=== PATIENT | male | born 1950 | race Caucasian/White ===

== ENCOUNTER 2019-05-11 12:45 | Inpatient (IN) ==
[2019-05-11] MEDS ORDERED: ACETAMINOPHEN 325 MG TAB PO PRN (13:33)
[2019-05-11] MEDS ORDERED: ONDANSETRON INJ 2 MG/ML 2 ML VIAL IV PRN (13:33)
[2019-05-11] MEDS ORDERED: DOCUSATE SODIUM 100 MG CAP PO PRN (13:38)
[2019-05-11] MEDS ORDERED: MoRPHine SULFATE 2 MG/ML CARP IV PRN (13:38)
[2019-05-11] MEDS ORDERED: POLYETHYLENE (MIRALAX) 17 GM PACK PO PRN (13:38)
[2019-05-11] MEDS ORDERED: CARBOHYDRATES FOR HYPOGLYCEMIA PO PRN (13:43)
[2019-05-11] MEDS ORDERED: GLUCOSE 10 TABS/TUBE PO PRN (13:43)
[2019-05-11] MEDS ORDERED: DEXTROSE 50% 50 ML SYRINGE IV PRN (13:43)
[2019-05-11] MEDS ORDERED: GLUCOSE 40% GEL 15 GM TUBE PO PRN (13:43)
[2019-05-11] MEDS ORDERED: GLUCAGON FOR INJ 1 MG VIAL SQ PRN (13:43)
--- NOTE | 2019-05-11 13:48 | History & Physical Report ---
Date of Service May 11, 2019 Assessment & Plan (1) Abdominal malignancy: Patient with recently identified abdominal mass highly suspicious for malignancy. -Admit to medical floor -NSS at 125mL/hr x 2 liters -Obtain MRI imaging from outside facility. -Check BMP, Mg, PO4, CBC, LFTs and INR -Check CA 19-9 -Pain control with OxyIR 5mg po q 4 hours as needed -Pain control with Morphine 2mg IV q 4 hours as needed -Colace and Miralax PRN -Hematology/Oncology consultation appreciated -Will consult GI vs General Surgery for possible biopsy pending imaging findings. Uncertain at this time exact location of mass -Palliative Care consultation after diagnosis Present on Admission?: Yes (2) Diabetes: Patient reports adequate control with home medications, Metformin, Jardiance and Tradjenta. -Hold oral agents while inpatient -ISS, target blood sugar 100 - 140 -Check HgbAIC Present on Admission?: Yes (3) CAD (coronary artery disease): Patient reports history of CAD s/p stent placement x 2 in [facility] in May or June of 2018. He is presently taking Brillinta. Denies CP/Palpitaitons/Orthopnea/SOB/Dizziness. -Check EKG -Continue Brillinta 90mg po BID -Continue Atorvastatin 80mg po daily -Continue Toprol 12.5mg po daily -Continue Losartan 50mg po daily Present on Admission?: Yes (4) BPH (benign prostatic hyperplasia): Patient reports weak urinary stream. -Bladder scan as needed -Continue Flomax 0.4mg po daily F/E/N- NSS at 125mL/hr x 2 liters, checking labs/electrolytes, AHA/CC diet as tolerated Ppx - Lovenox Code - Full Dispo - Admit to medical floor Present on Admission?: Yes History of Present Illness Chief Complaint: Abdominal pain Primary Care Provider: Wilmer Aguilera DO Chele Cai is an unfortunate 68-year-old male presenting with suspected metastatic malignancy, unknown primary at this time. Patient reports severe right-sided flank pain over the last few weeks. He saw his PCP with this complaint approximately 2 weeks ago. An MRI was obtained which reportedly showed diffuse lesions in the liver, spleen and abdomen suspicious for metastatic disease. He was seen last weekend at an outside emergency room and was administered IV fluids and pain medications and subsequently discharged home. She reports weight loss of approximately 40 pounds over the last 1 to 2 months. Reports decreased appetite, poor p.o. intake and hot flashes. Also with constipation. Otherwise denies fever/chills/chest pain/palpitations/cough/shortness of breath/headache/seizure/numbness/weakness/tingling. Denies nausea/vomiting/diarrhea. Allergies Allergy/AdvReac Type Severity Reaction Status Date / Time No Known Allergies Allergy Unverified 05/11/19 14:13 Home Medications Home Medications Medication Instructions Recorded Confirmed Type atorvastatin 80 mg PO DAILY 05/11/19 05/11/19 History empagliflozin [Jardiance] 25 mg PO DAILY 05/11/19 05/11/19 History linagliptin [Tradjenta] 5 mg PO DAILY 05/11/19 05/11/19 History losartan 50 mg PO DAILY 05/11/19 05/11/19 History metformin 1,000 mg PO BID 05/11/19 05/11/19 History metoprolol succinate 12.5 mg PO DAILY 05/11/19 05/11/19 History omeprazole 20 mg PO DAILY 05/11/19 05/11/19 History tamsulosin 0.4 mg PO DAILY 05/11/19 05/11/19 History ticagrelor [Brilinta] 90 mg PO BID 05/11/19 05/11/19 History Past Med/Surg History Medical History (Updated 05/11/19 @ 14:02 by Maribel Morales DO) Abdominal malignancy BPH (benign prostatic hyperplasia) CAD (coronary artery disease) Diabetes Surgical History (Updated 05/11/19 @ 22:54 by Maribel Morales DO) History of heart artery stent May 2018 at [facility] Family History (Updated 05/11/19 @ 22:55 by Maribel Morales DO) Brother Cancer Sister Cancer Social History (System 05/01/19 @ 11:54 by Gela Tyson) Preferred Language: [place] Citizen [employer] Operator Required: No Beliefs That Will Affect Care: None Current Living Situation: Spouse Feels Safe at Home: Yes Safety Concerns: Feels Safe At This Time Smoking Status: Former smoker Tobacco Type: cigarettes ; Smoking End Date: 05/11/19 ; Hx Alcohol Use: No Hx Substance Use: No Review of Systems Review of Systems: All systems reviewed & are unremarkable except as noted in HPI & below Physical Exam Physical Exam: General: patient resting comfortably, NAD, ill in appearance, AA&O x 4 Skin: warm, dry, intact, no rashes or lesions, jaundice HEENT: NC/AT, PERRL, EOMI, anicteric sclera, conjunctiva without injection, external ear normal to inspection and nontender, nares patent, dry mucus membranes, dentition intact, no oropharyngeal lesions, neck supple, trachea midline, no LAD, no thyromegaly, no JVD Heart: +S1/S2, regular, no m/r/g Lungs: equal air entry bilaterally, no rales/rhonchi/wheezes Abd: +BS, soft, tenderness in the right upper quadrant, palpable liver edge, tender Ext: warm, 2+ pulses in UE/LE bilaterally, no clubbing/cyanosis or edema Neuro: nonfocal, patient AA&O x 4, speech intact, no facial droop, moving all extremities on command with equal strength 5/5 Results & Data Vital Signs (Past 12 Hours) Vital Signs Temp Pulse Resp BP Pulse Ox 05/11/19 13:16 36.7 C 99 H 20 103/64 95 Laboratory Results Lab Results 05/11/19 05/11/19 05/11/19 Range/Units 13:58 14:12 14:12 WBC 7.98 (4.8-10.8) K/uL RBC 4.62 L (4.7-6.1) M/uL Hgb 12.2 L (14.0-18.0) g/dL Hct 38.6 L (42-52) % MCV 83.5 (80-100) fL MCH 26.4 (25-34) pg MCHC 31.6 L (32-36) g/dL RDW Std Deviation 46.7 H (36.4-46.3) fL RDW Coeff of Lesley 15.3 H (11.5-14.5) % Plt Count 196 (130-400) K/uL MPV 10.7 H (7.4-10.4) fL Immature Gran % (Auto) 0.4 % Neut % (Auto) 86.7 % Lymph % (Auto) 5.0 % [place] % (Auto) 7.8 % Eos % (Auto) 0.1 % Baso % (Auto) 0.0 % Immature Gran # (Auto) 0.03 H (0.00-0.02) K/uL Neut # (Auto) 6.92 H (1.4-6.5) K/uL Lymph # (Auto) 0.40 L (1.2-3.4) K/uL [place] # (Auto) 0.62 H (0.11-0.59) K/uL Eos # (Auto) 0.01 (0-0.5) K/uL Baso # (Auto) 0.00 (0-0.2) K/uL PT (9.0-12.0) Seconds INR (0.9-1.1) Sodium 133 L (136-145) mmol/L Potassium 4.3 (3.5-5.1) mmol/L Chloride 101 (98-107) mmol/L Carbon Dioxide 25 (21-32) mmol/L Anion Gap 7.0 (3-11) BUN 30 H (7-18) mg/dl Creatinine 1.07 (0.6-1.4) mg/dl Est Cr Clr Drug Dosing 71.9 ml/min Est GFR ( Amer) 82.2 Est GFR (Non-Af Amer) 71.0 BUN/Creatinine Ratio 27.8 H (10-20) Glucose 130 H (70-99) mg/dl POC Glucose 173 H (70-99) Calcium 11.5 H (8.5-10.1) mg/dl Ionized Calcium (1.12-1.32) mmol/L Phosphorus 3.0 (2.5-4.9) mg/dl Magnesium 2.4 (1.8-2.4) mg/dl Total Bilirubin 2.0 H (0.2-1) mg/dl Direct Bilirubin 1.4 H (0-0.2) mg/dl AST 184 H (15-37) U/L ALT 55 (12-78) U/L Alkaline Phosphatase 372 H (45-117) U/L Total Protein 7.4 (6.4-8.2) gm/dl Albumin 2.5 L (3.4-5.0) gm/dl Lipase 81 (73-393) U/L Urine Color Urine Appearance (Clear) Urine pH (4.5-7.5) Ur Specific [place] (1.000-1.030) Urine Protein (Negative) Urine Glucose (UA) (Negative) Urine Ketones (Negative) Urine Blood (Negative) Urine Nitrite (Negative) Urine Bilirubin (Negative) Urine Urobilinogen (Negative) Ur Leukocyte Esterase (Negative) Hepatitis C Ab Screen (Neg) 05/11/19 05/11/19 05/11/19 Range/Units 14:12 14:14 15:42 WBC (4.8-10.8) K/uL RBC (4.7-6.1) M/uL Hgb (14.0-18.0) g/dL Hct (42-52) % MCV (80-100) fL MCH (25-34) pg MCHC (32-36) g/dL RDW Std Deviation (36.4-46.3) fL RDW Coeff of Lesley (11.5-14.5) % Plt Count (130-400) K/uL MPV (7.4-10.4) fL Immature Gran % (Auto) % Neut % (Auto) % Lymph % (Auto) % [place] % (Auto) % Eos % (Auto) % Baso % (Auto) % Immature Gran # (Auto) (0.00-0.02) K/uL Neut # (Auto) (1.4-6.5) K/uL Lymph # (Auto) (1.2-3.4) K/uL [place] # (Auto) (0.11-0.59) K/uL Eos # (Auto) (0-0.5) K/uL Baso # (Auto) (0-0.2) K/uL PT 12.2 H (9.0-12.0) Seconds INR 1.2 H (0.9-1.1) Sodium (136-145) mmol/L Potassium (3.5-5.1) mmol/L Chloride (98-107) mmol/L Carbon Dioxide (21-32) mmol/L Anion Gap (3-11) BUN (7-18) mg/dl Creatinine (0.6-1.4) mg/dl Est Cr Clr Drug Dosing ml/min Est GFR ( Amer) Est GFR (Non-Af Amer) BUN/Creatinine Ratio (10-20) Glucose (70-99) mg/dl POC Glucose (70-99) Calcium (8.5-10.1) mg/dl Ionized Calcium (1.12-1.32) mmol/L Phosphorus (2.5-4.9) mg/dl Magnesium (1.8-2.4) mg/dl Total Bilirubin (0.2-1) mg/dl Direct Bilirubin (0-0.2) mg/dl AST (15-37) U/L ALT (12-78) U/L Alkaline Phosphatase (45-117) U/L Total Protein (6.4-8.2) gm/dl Albumin (3.4-5.0) gm/dl Lipase (73-393) U/L Urine Color Dark Yellow Urine Appearance Clear (Clear) Urine pH 5.0 (4.5-7.5) Ur Specific [place] 1.037 H (1.000-1.030) Urine Protein Negative (Negative) Urine Glucose (UA) 3+ H (Negative) Urine Ketones Trace H (Negative) Urine Blood Negative (Negative) Urine Nitrite Negative (Negative) Urine Bilirubin Negative (Negative) Urine Urobilinogen Positive H (Negative) Ur Leukocyte Esterase Negative (Negative) Hepatitis C Ab Screen Neg (Neg) 05/11/19 05/11/19 05/11/19 Range/Units 16:38 19:58 20:14 WBC (4.8-10.8) K/uL RBC (4.7-6.1) M/uL Hgb (14.0-18.0) g/dL Hct (42-52) % MCV (80-100) fL MCH (25-34) pg MCHC (32-36) g/dL RDW Std Deviation (36.4-46.3) fL RDW Coeff of Lesley (11.5-14.5) % Plt Count (130-400) K/uL MPV (7.4-10.4) fL Immature Gran % (Auto) % Neut % (Auto) % Lymph % (Auto) % [place] % (Auto) % Eos % (Auto) % Baso % (Auto) % Immature Gran # (Auto) (0.00-0.02) K/uL Neut # (Auto) (1.4-6.5) K/uL Lymph # (Auto) (1.2-3.4) K/uL [place] # (Auto) (0.11-0.59) K/uL Eos # (Auto) (0-0.5) K/uL Baso # (Auto) (0-0.2) K/uL PT (9.0-12.0) Seconds INR (0.9-1.1) Sodium 135 L (136-145) mmol/L Potassium 4.3 (3.5-5.1) mmol/L Chloride 100 (98-107) mmol/L Carbon Dioxide 26 (21-32) mmol/L Anion Gap 9.0 (3-11) BUN 28 H (7-18) mg/dl Creatinine 1.29 (0.6-1.4) mg/dl Est Cr Clr Drug Dosing 59.7 ml/min Est GFR ( Amer) 65.6 Est GFR (Non-Af Amer) 56.6 BUN/Creatinine Ratio 21.8 H (10-20) Glucose 120 H (70-99) mg/dl POC Glucose 136 H 202 H (70-99) Calcium 11.5 H (8.5-10.1) mg/dl Ionized Calcium (1.12-1.32) mmol/L Phosphorus (2.5-4.9) mg/dl Magnesium (1.8-2.4) mg/dl Total Bilirubin (0.2-1) mg/dl Direct Bilirubin (0-0.2) mg/dl AST (15-37) U/L ALT (12-78) U/L Alkaline Phosphatase (45-117) U/L Total Protein (6.4-8.2) gm/dl Albumin (3.4-5.0) gm/dl Lipase (73-393) U/L Urine Color Urine Appearance (Clear) Urine pH (4.5-7.5) Ur Specific [place] (1.000-1.030) Urine Protein (Negative) Urine Glucose (UA) (Negative) Urine Ketones (Negative) Urine Blood (Negative) Urine Nitrite (Negative) Urine Bilirubin (Negative) Urine Urobilinogen (Negative) Ur Leukocyte Esterase (Negative) Hepatitis C Ab Screen (Neg) 05/11/19 Range/Units 20:14 WBC (4.8-10.8) K/uL RBC (4.7-6.1) M/uL Hgb (14.0-18.0) g/dL Hct (42-52) % MCV (80-100) fL MCH (25-34) pg MCHC (32-36) g/dL RDW Std Deviation (36.4-46.3) fL RDW Coeff of Lesley (11.5-14.5) % Plt Count (130-400) K/uL MPV (7.4-10.4) fL Immature Gran % (Auto) % Neut % (Auto) % Lymph % (Auto) % [place] % (Auto) % Eos % (Auto) % Baso % (Auto) % Immature Gran # (Auto) (0.00-0.02) K/uL Neut # (Auto) (1.4-6.5) K/uL Lymph # (Auto) (1.2-3.4) K/uL [place] # (Auto) (0.11-0.59) K/uL Eos # (Auto) (0-0.5) K/uL Baso # (Auto) (0-0.2) K/uL PT (9.0-12.0) Seconds INR (0.9-1.1) Sodium (136-145) mmol/L Potassium (3.5-5.1) mmol/L Chloride (98-107) mmol/L Carbon Dioxide (21-32) mmol/L Anion Gap (3-11) BUN (7-18) mg/dl Creatinine (0.6-1.4) mg/dl Est Cr Clr Drug Dosing ml/min Est GFR ( Amer) Est GFR (Non-Af Amer) BUN/Creatinine Ratio (10-20) Glucose (70-99) mg/dl POC Glucose (70-99) Calcium (8.5-10.1) mg/dl Ionized Calcium 1.38 H (1.12-1.32) mmol/L Phosphorus (2.5-4.9) mg/dl Magnesium (1.8-2.4) mg/dl Total Bilirubin (0.2-1) mg/dl Direct Bilirubin (0-0.2) mg/dl AST (15-37) U/L ALT (12-78) U/L Alkaline Phosphatase (45-117) U/L Total Protein (6.4-8.2) gm/dl Albumin (3.4-5.0) gm/dl Lipase (73-393) U/L Urine Color Urine Appearance (Clear) Urine pH (4.5-7.5) Ur Specific [place] (1.000-1.030) Urine Protein (Negative) Urine Glucose (UA) (Negative) Urine Ketones (Negative) Urine Blood (Negative) Urine Nitrite (Negative) Urine Bilirubin (Negative) Urine Urobilinogen (Negative) Ur Leukocyte Esterase (Negative) Hepatitis C Ab Screen (Neg) Diagnostic Findings XR chest 1V portable HISTORY: 68 years-old Male admission acute atypical chest pain COMPARISON: None available TECHNIQUE: Portable AP view the chest FINDINGS: Cardiac mediastinal and hilar silhouettes are within normal limits. Mild to moderate right hemidiaphragmatic elevation. No pneumothorax, pleural effusion, focal airspace consolidation or overt pulmonary edema. Mild right basilar atelectasis. Degenerative changes of the shoulders and spine. Mild convex right curvature of the midthoracic spine. IMPRESSION: 1. No acute process. 2. Right hemidiaphragm elevation with mild right basilar atelectasis. ACT 112: Negative or not required by law. The above report was generated using voice recognition software. It may contain grammatical, syntax or spelling errors. Electronically signed by: Paul Garzon M.D. 05/11/2019 2:02 PM Dictated: 05/11/19 1401 Transcribed: 05/11/19 1401 ECG Additional Comments: Study shows normal sinus rhythm at 89 bpm, left axis dev iation, MD = 142, QRS = 102, QTC = 440, nonspecific ST/T abnormalities, no STEMI Code Status & VTE Plan Code Status Full code VTE Prophylaxis Plan VTE Prophylaxis will be ordered: Yes PG Care Time/CCT Total # of Minutes Spent Total Time Spent with Patient: Total time spent is greater than 50% in coordination of care (as documented) at patient's floor/unit and/or counseling patient: (1) BPH (benign prostatic hyperplasia) Lower urinary tract symptom detail: weak urinary stream Lower urinary tract symptom presence: symptoms present Qualified Code(s): N40.1 - Benign prostatic hyperplasia with lower urinary tract symptoms; R39.12 - Poor urinary stream (2) Diabetes Diabetes mellitus complication status: without complication Diabetes mellitus intermediate insulin use: without intermediate designer use Diabetes mellitus type: type 2 Qualified Code(s): E11.9 - Type 2 diabetes mellitus without complications (3) CAD (coronary artery disease) Associated angina: without angina Coronary Disease-Associated Artery/Lesion type: [place] artery [place] vs. transplanted heart: kake heart Qualified Code(s): I25.10 - Atherosclerotic heart disease of kake coronary artery without angina pectoris
--- NOTE | 2019-05-11 14:03 | XRay Report ---
XR chest 1V portable HISTORY: 68 years-old Male admission acute atypical chest pain COMPARISON: None available TECHNIQUE: Portable AP view the chest FINDINGS: Cardiac mediastinal and hilar silhouettes are within normal limits. Mild to moderate right hemidiaphr agmatic elevation. No pneumothorax, pleural effusion, focal airspace consolidation or overt pulmonary edema. Mild right basilar atelectasis. Degenerative changes of the shoulders and spine. Mild convex right curvature of the midthoracic spine. IMPRESSION: 1. No acute process. 2. Right hemidiaphragm elevation with mild right basilar atelectasis. ACT 112: Negative or not required by law. The above report was generated using voice recognition software. It may contain grammatical, syntax o r spelling errors. Electronically signed by: Paul Garzon M.D. 05/11/2019 2:02 PM
[2019-05-11 14:24] LABS: Eosinophils # (auto) 0.01 K/uL (0-0.5); Eosinophils % (auto) 0.1 %; Hematocrit (blood only) 38.6 % (42-52); Hemoglobin 12.2 g/dL (14.0-18.0); Immature Granulocytes # (auto) 0.03 K/uL (0.00-0.02); Immature Granulocytes % (auto) 0.4 %; Mean Corpuscular Hemoglobin 26.4 pg (25-34); Mean Corpuscular Hgb Conc 31.6 g/dL (32-36); Mean Corpuscular Volume 83.5 fL (80-100); Mean Platelet Volume 10.7 fL (7.4-10.4); Monocytes # (auto) 0.62 K/uL (0.11-0.59); Monocytes % (auto) 7.8 %; Neutrophils # (auto) 6.92 K/uL (1.4-6.5); Neutrophils % (auto) 86.7 %; Platelet Count 196 K/uL (130-400); RDW Coefficient of Variation 15.3 % (11.5-14.5); RDW Standard Deviation 46.7 fL (36.4-46.3); Red Blood Count 4.62 M/uL (4.7-6.1); White Blood Count 7.98 K/uL (4.8-10.8)
[2019-05-11] MEDS ORDERED: PATIENT'S ALLERGY INFO NEEDS ENTERED SCH (14:30)
[2019-05-11] MEDS: OXYCODONE HCL IR 5 MG TAB (IMMEDIATE RELEASE) PO PRN ×2 (14:37→21:29)
[2019-05-11] MEDS: SODIUM CHLORIDE 0.9% 1000ML 1,000 ML IV SCH (14:37)
[2019-05-11] MEDS: METOPROLOL SUCC 25MG EXT REL TAB PO SCH (14:38)
[2019-05-11] MEDS: INSULIN ASPART 100 UNITS/ML 3 ML PEN SC SCH ×3 (14:45→20:38)
[2019-05-11 14:50] LABS: Albumin Level 2.5 gm/dl (3.4-5.0); BUN Creatinine Ratio 27.8 (10-20); Bilirubin Direct 1.4 mg/dl (0-0.2); Calcium 11.5 mg/dl (8.5-10.1); Creatinine Clr Calc Pharmacy 71.9 ml/min; Est GFR (African American) 82.2; Magnesium 2.4 mg/dl (1.8-2.4); Potassium 4.3 mmol/L (3.5-5.1)
[2019-05-11 14:55] LABS: Total Protein 7.4 gm/dl (6.4-8.2)
[2019-05-11 15:02] LABS: INR 1.2 (0.9-1.1); Prothrombin Time 12.2 Seconds (9.0-12.0)
[2019-05-11 15:50] LABS: Appearance Urine Clear (Clear); Blood Urine Negative (Negative); Color Urine Dark Yellow; Glucose Urine UA 3+ (Negative); Ketones Urine Trace (Negative); Leukocyte Esterase Urine Negative (Negative); Nitrite Urine Negative (Negative); Protein Urine Negative (Negative); Specific Gravity Urine 1.037 (1.000-1.030); Urobilinogen Urine Positive (Negative)
[2019-05-11 16:11] LABS: Bilirubin Urine Negative (Negative); Ictotest Urine Negative (Negative)
--- NOTE | 2019-05-11 16:47 | Consultation Report ---
DATE OF CONSULTATION: 05/11/2019 MEDICAL ONCOLOGY CONSULTATION REASON FOR CONSULTATION: Hepatic metastatic disease, origin unclear. HISTORY OF PRESENT ILLNESS: The patient is a very pleasant, but unfortunate, ill-appearing 68-year-old white gentleman who was admitted to [facility] on my insistence after he presented to medical oncology clinic with an undiagnosed abdominal malignancy. This gentleman has been feeling poorly over the past couple of months. Over the past couple of weeks, he has developed increasing right-sided flank pain that has worsened to the point where he was brought to the Emergency Room on 2 different occasions, both approximating the and holidays, respectively. Both times, the ER physicians did not opt to admit him. He was placed on opioids, particularly morphine and OxyIR. The patient relates a loss of at least 30-40 pounds over the past couple of months. His appetite is negligible at this point. CT scanning that was done at [facility] revealed multiple hepatic lesions; however, no formal biopsy was ever arranged for. Because of his nutritional status and poorly controlled pain, I thought it was reasonable to go put him in hospital under the hospitalist service for further workup. PAST MEDICAL HISTORY: Significant for diabetes mellitus, hyperlipidemia and gastroesophageal reflux disease. He also suffers from BPH. MEDICATIONS: Include atorvastatin 80 mg p.o. daily, Jardiance 25 mg p.o. daily, Tradjenta 5 mg p.o. daily, losartan 50 mg p.o. daily, metformin 1000 mg p.o. b.i.d., metoprolol 12.5 mg p.o. daily, omeprazole 20 mg p.o. daily, tamsulosin 0.4 mg p.o. daily, Brilinta 90 mg p.o. b.i.d. ALLERGIES: No known drug allergies. SOCIAL HISTORY: The patient is retired. He does have a remote smoking history. Negative for alcohol. FAMILY HISTORY: Noncontributory. REVIEW OF SYSTEMS: CONSTITUTIONAL: As per HPI, most notably for general clinical decline, which includes weakness, right-sided abdominal flank pain, loss of weight and appetite. SKIN: No rashes or lesions. No history of dermatoses. HEENT: Negative for headaches, lightheadedness or dizziness. He has no acute visual or hearing deficits. No sinus symptoms, sore throat or dysphagia. LYMPHATICS: No history of lymphoproliferative disease. CARDIAC: No history of coronary artery disease. No current angina or palpitations. PULMONARY: He is a reformed smoker. Negative for COPD, shortness of breath or dyspnea on exertion at present. GASTROINTESTINAL: Positive for abdominal pain. He denies diarrhea or constipation. Negative for nausea and vomiting at present. GENITOURINARY: He suffers from BPH. No current hematuria, dysuria, or urinary incontinence. PSYCHIATRIC: Negative for anxiety, depression or psychoses. ENDOCRINE: Positive for diabetes mellitus. MUSCULOSKELETAL: Negative for arthralgias or myalgias. No focal muscle weakness. NEUROLOGIC: Negative for seizure, stroke, or migraine headache. HEMATOLOGIC: Negative for anemia, thrombophilia or bleeding diathesis. PHYSICAL EXAMINATION: GENERAL: Pleasant, but ill-appearing 68-year-old gentleman, in no acute distress. VITAL SIGNS: Temperature 36.7, pulse 99, respiratory rate 20, blood pressure 103/64. SKIN: Warm, dry, noncyanotic without petechia, rash or ecchymosis. HEENT: Head is atraumatic, normocephalic. Eyes: PERRLA, EOMI. Sclerae are nonicteric. No conjunctival injection. Nares are patent without rhinorrhea or discharge. Throat is clear. Tongue is midline. Mucous membranes are moist. NECK: Supple without JVD or thyromegaly. LYMPHATICS: No cervical, supraclavicular, axillary or inguinal palpable nodes. HEART: Regular rate and rhythm. No clicks, rubs, murmurs or gallops. . ABDOMEN: Point tenderness on the right side of his abdomen. Palpable splenomegaly on exam. No rigidity or guarding. Bowel sounds are hypoactive. EXTREMITIES: No clubbing, cyanosis or edema. MUSCULOSKELETAL: Strength and pulses are equal in all 4 quadrants. NEUROLOGICAL: He is awake, alert and oriented x3. Cranial nerves are grossly intact. LABORATORY DATA: WBC count 7980, hemoglobin 12.2, platelet count 196,000. PT 12.2 seconds, INR 1.2. Sodium 133, potassium 4.3, chloride 101, carbon dioxide 25, creatinine 1.07, BUN 30, calcium 11.5, albumin 2.5, AST 184, alkaline phosphatase 372. IMPRESSION: 1. Metastatic carcinoma, primary unknown (hepatic metastatic disease). 2. General clinical decline. 3. Anorexia/weight loss. 4. Intractable abdominal pain. 5. Hypercalcemia, attributable to malignancy. 6. Hypoalbuminemia. PLAN: Mr. Cai was seen this morning in the medical oncology clinic. He is obviously quite ill and need to expedite a diagnosis. In addition his pain is poorly controlled and nutrition should be addressed as well. I have asked the hospitalist service to admit Mr. Cai for formal diagnosis. I would anticipate the need for MediPort, so recommend a surgical consultation for such as well. He clearly has an elevated calcium level attributable to his ongoing malignancy. Would provide pamidronate dosing at 60-90 mg over 2 hours with IV saline and low-dose loop diuretic. We will ask the [employer] to provide recommendations, start an appetite stimulant, perhaps daily prednisone versus Megace. Once diagnosis is established, either Dr. Eagle or myself will reengage and make formal recommendations regarding salvage therapy moving forward. Appreciate you assisting us in the care of this very pleasant but unfortunate gentleman. Again, we will periodically follow during his stay. DEQUAN
[2019-05-11] MEDS ORDERED: SODIUM CHLORIDE 0.9% 1000ML 500 ML IV ONE (17:24)
[2019-05-11] MEDS: HYDROmorphone INJ 1 MG/ML SYRINGE IV PRN (17:47)
[2019-05-11] MEDS ORDERED: PAMIDRONATE DISODIUM 60 MG in SODIUM CHLORIDE 0.9% 1000ML 1,000 ML IV SCH (18:00)
[2019-05-11] MEDS ORDERED: FUROSEMIDE 10 MG in SYRINGE 0 ML IV ONE (18:00)
[2019-05-11] MEDS: TICAGRELOR 90 MG TAB PO SCH (20:38)
[2019-05-11] MEDS: ENOXAPARIN INJ 40 MG/0.4 ML SYR SQ SCH (20:38)
[2019-05-11 20:42] LABS: BUN Creatinine Ratio 21.8 (10-20); Calcium 11.5 mg/dl (8.5-10.1); Creatinine Clr Calc Pharmacy 59.7 ml/min; Est GFR (African American) 65.6; Est GFR (Non-African American) 56.6; Potassium 4.3 mmol/L (3.5-5.1)
[2019-05-12] MEDS: HYDROmorphone INJ 1 MG/ML SYRINGE IV PRN ×4 (00:12→19:39)
[2019-05-12] MEDS: SODIUM CHLORIDE 0.9% 1000ML 1,000 ML IV SCH ×3 (03:27→18:05)
[2019-05-12 05:43] LABS: Eosinophils # (auto) 0.01 K/uL (0-0.5); Eosinophils % (auto) 0.1 %; Hematocrit (blood only) 36.5 % (42-52); Hemoglobin 11.5 g/dL (14.0-18.0); Immature Granulocytes # (auto) 0.03 K/uL (0.00-0.02); Immature Granulocytes % (auto) 0.4 %; Lymphocytes # (auto) 0.63 K/uL (1.2-3.4); Lymphocytes % (auto) 8.2 %; Mean Corpuscular Hemoglobin 26.3 pg (25-34); Mean Corpuscular Hgb Conc 31.5 g/dL (32-36); Mean Corpuscular Volume 83.3 fL (80-100); Monocytes # (auto) 0.73 K/uL (0.11-0.59); Monocytes % (auto) 9.5 %; Neutrophils % (auto) 81.8 %; Platelet Count 150 K/uL (130-400); RDW Coefficient of Variation 15.4 % (11.5-14.5); RDW Standard Deviation 46.9 fL (36.4-46.3); Red Blood Count 4.38 M/uL (4.7-6.1)
[2019-05-12 06:10] LABS: BUN Creatinine Ratio 26.3 (10-20); Calcium 11.4 mg/dl (8.5-10.1); Est GFR (African American) 85.1; Est GFR (Non-African American) 73.4; Potassium 4.9 mmol/L (3.5-5.1)
--- NOTE | 2019-05-12 06:39 | Ultrasound Report ---
US liver CLINICAL HISTORY: ?biliary obstruction, hepatic mets COMPARISON STUDY: No previous studies for comparison. FINDINGS: Liver is markedly heterogeneous. Several hepatic lesions are noted including an apparent la rge right hepatic lobe mass that measures approximately 14.3 x 11.9 x 11.1 cm. A 1.6 cm left lobe cara er lesion is noted. The liver is enlarged. There is no biliary ductal dilatation. The common bile keyshawn t measures 2 mm in caliber. There is gallbladder wall thickening. There are stones. Positive sonograp hic Geiger sign was noted. A small amount of pericholecystic fluid is noted. Pancreas is unremarkable . There are apparent enlarged upper abdominal lymph nodes that measure up to 6.4 x 2.4 x 3.2 cm. Ther e is no right hydronephrosis. A 3.3 cm suspected right renal cyst is noted. IMPRESSION: 1. Heterogeneous liver parenchyma with numerous hepatic lesions including a suspected large right hep atic lobe lesion that measures approximately 14.3 x 11.9 x 11.1 cm. Findings are suspicious for hepat ic metastases. 2. Cholelithiasis, mild gallbladder wall thickening, trace pericholecystic fluid and positive sonogra phic Geiger sign. These findings are concerning for acute cholecystitis. 3. No biliary ductal dilatation. 4. Enlarged upper abdominal lymph nodes which are likely pathologic. ACT 112: Negative or not required by law. Electronically signed by: Dano Hartman M.D. 05/12/2019 6:38 AM
[2019-05-12 07:14] LABS: Estimated Average Glucose 163 mg/dl; Hemoglobin A1C 7.3 % (4.5-5.6)
[2019-05-12] MEDS: TICAGRELOR 90 MG TAB PO SCH (07:53)
[2019-05-12] MEDS: PANTOprazole 40 MG TAB PO SCH (07:54)
[2019-05-12] MEDS: METOPROLOL SUCC 25MG EXT REL TAB PO SCH (07:54)
[2019-05-12] MEDS: ATORVASTATIN 40 MG TAB PO SCH (07:55)
[2019-05-12] MEDS: TAMSULOSIN HCL 0.4 MG CAP PO SCH (07:55)
--- NOTE | 2019-05-12 08:16 | Electrocardiogram Report ---
Test Reason : Blood Pressure : / mmHG Vent. Rate : 089 BPM Atrial Rate : 089 BPM P-R Int : 142 ms QRS Dur : 102 ms QT Int : 362 ms P-R-T Axes : 048 -47 095 degrees QTc Int : 440 ms Normal sinus rhythm with sinus arrhythmia Left axis deviation Nonspecific ST and T wave abnormality Abnormal ECG No previous ECGs available Confirmed by Uvaldo Camilo ([id number]) on 05/11/2019 5:53:24 PM Referred By: Chauncey Jordan Confirmed By:Angel Camilo
[2019-05-12] MEDS ORDERED: LOSARTAN POTASSIUM 50 MG TAB PO SCH (09:00)
[2019-05-12] MEDS: INSULIN ASPART 100 UNITS/ML 3 ML PEN SC SCH ×4 (09:15→20:28)
[2019-05-12 09:33] LABS: INR 1.3 (0.9-1.1); Prothrombin Time 13.4 Seconds (9.0-12.0)
[2019-05-12 09:49] LABS: Albumin Level 2.1 gm/dl (3.4-5.0); Bilirubin Direct 1.3 mg/dl (0-0.2); Total Protein 6.2 gm/dl (6.4-8.2)
--- NOTE | 2019-05-12 10:30 | Surgery Consultation ---
Date of Consultation May 12, 2019 Assessment & Plan (1) Abdominal malignancy: 68 year-old male with recent diagnosis of abdominal malignancy/metastasis with unknown primary who was directly admitted for uncontrolled abdominal pain. Recent 40 pound weight loss in 1-2 months. Outside abdominal MRI not available for review. Plan: Our services consulted for possible port placement for salvage chemotherapy. Will need to discuss with hospitalist team and oncology team about goal of thera py. If wanting biopsy first to determine primary site vs port placement. He currently has diet ordered for today and had breakfast, so cannot place port today. If oncology wants port first can place port on Wednesday and hold Brilinta starting today. If biopsy is primary goal may need to consider transfer for IR biopsy if unable to be done at this facility. Continue current medical management (2) RUQ abdominal pain: Likely secondary to liver metastasis. Liver Ultrasound pending Would continue current pain management await US results (3) Metastasis of unknown primary: plan as above Dr. Streeter has seen patient, agrees with above. History of Present Illness Reason for Consultation: need for port placement Requesting Physician: Maribel Morales DO Attending Physician: Khai Ramirez History of Present Illness Don is an unfortunate 68-year-old male presenting with suspected metastatic malignancy, unknown primary at this time. Has had severe right-sided flank pain over the last few weeks. He saw his PCP with this complaint approximately 2 weeks ago. An MRI was obtained which reportedly showed diffuse lesions in the liver, spleen and abdomen suspicious for metastatic disease. He was seen last weekend at [place] emergency room and was administered IV fluids and pain me dications and subsequently discharged home. present in room and reports weight loss of approximately 40 pounds over the last 1 to 2 months. Reports decreased appetite, poor oral intake. Saw Dr. Hale in office yesterday and was admitted to hospital given severe uncontrolled abdominal pain. Our services consulted for possible port placement for salvage chemotherapy although unknown primary at this point as there has been no biopsy for diagnosis. He went for liver ultrasound this morning per . Still having moderate right sided abdominal pain. Ate breakfast this morning. On Brilinta for CAD and 2 stents placed in 2018. Allergies Allergy/AdvReac Type Severity Reaction Status Date / Time No Known Allergies Allergy Unverified 05/11/19 14:13 Home Medications Home Medications Medication Instructions Recorded Confirmed Type atorvastatin 80 mg PO DAILY 05/11/19 05/11/19 History empagliflozin [Jardiance] 25 mg PO DAILY 05/11/19 05/11/19 History linagliptin [Tradjenta] 5 mg PO DAILY 05/11/19 05/11/19 History losartan 50 mg PO DAILY 05/11/19 05/11/19 History metformin 1,000 mg PO BID 05/11/19 05/11/19 History metoprolol succinate 12.5 mg PO DAILY 05/11/19 05/11/19 History omeprazole 20 mg PO DAILY 05/11/19 05/11/19 History tamsulosin 0.4 mg PO DAILY 05/11/19 05/11/19 History ticagrelor [Brilinta] 90 mg PO BID 05/11/19 05/11/19 History Patient History Medical History (Updated 05/12/19 @ 10:58 by Alyssa Hernandez PA-C) Abdominal malignancy BPH (benign prostatic hyperplasia) CAD (coronary artery disease) Diabetes Surgical History (Updated 05/11/19 @ 22:54 by Maribel Morales DO) History of heart artery stent May 2018 at [facility] Family History (Updated 05/11/19 @ 22:55 by Maribel Morales DO) Brother Cancer Sister Cancer Social History (System 05/01/19 @ 11:54 by Gela Tyson) Preferred Language: 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: No Beliefs That Will Affect Care: None Current Living Situation: Spouse Feels Safe at Home: Yes Safety Concerns: Feels Safe At This Time Smoking Status: Former smoker Tobacco Type: cigarettes ; Smoking End Date: 05/11/19 ; Hx Alcohol Use: No Hx Substance Use: No Review of Systems Review of Systems: All systems reviewed & are unremarkable except as noted in HPI & below Physical Exam Constitutional: + ill appearing; no acute distress weak Respiratory: normal respiratory effort; no respiratory distress Skin: no rashes, warm and dry Psychiatric: Orientation: alert and oriented x 3 Results & Data Vital Signs (Past 12 Hours) Vital Signs Temp Pulse Resp BP Pulse Ox 05/12/19 07:00 36.4 C L 95 H 20 111/73 95 05/12/19 04:15 37.1 C 87 18 91/56 L 90 05/11/19 23:33 37.7 C H 90 18 95/62 L 91 Laboratory Results 05/12/19 05/12/19 05/12/19 Range/Units 09:02 09:02 07:45 WBC (4.8-10.8) K/uL RBC (4.7-6.1) M/uL Hgb (14.0-18.0) g/dL Hct (42-52) % MCV (80-100) fL MCH (25-34) pg MCHC (32-36) g/dL RDW Std Deviation (36.4-46.3) fL RDW Coeff of Lesley (11.5-14.5) % Plt Count (130-400) K/uL MPV (7.4-10.4) fL Immature Gran % (Auto) % Neut % (Auto) % Lymph % (Auto) % [place] % (Auto) % Eos % (Auto) % Baso % (Auto) % Immature Gran # (Auto) (0.00-0.02) K/uL Neut # (Auto) (1.4-6.5) K/uL Lymph # (Auto) (1.2-3.4) K/uL [place] # (Auto) (0.11-0.59) K/uL Eos # (Auto) (0-0.5) K/uL Baso # (Auto) (0-0.2) K/uL PT 13.4 H (9.0-12.0) Seconds INR 1.3 H (0.9-1.1) Sodium (136-145) mmol/L Potassium (3.5-5.1) mmol/L Chloride (98-107) mmol/L Carbon Dioxide (21-32) mmol/L Anion Gap (3-11) BUN (7-18) mg/dl Creatinine (0.6-1.4) mg/dl Est Cr Clr Drug Dosing ml/min Est GFR ( Amer) Est GFR (Non-Af Amer) BUN/Creatinine Ratio (10-20) Glucose (70-99) mg/dl POC Glucose 246 H (70-99) Estimat Average Glucose mg/dl Hemoglobin A1c (4.5-5.6) % Calcium (8.5-10.1) mg/dl Ionized Calcium (1.12-1.32) mmol/L Phosphorus (2.5-4.9) mg/dl Magnesium (1.8-2.4) mg/dl Total Bilirubin 2.0 H (0.2-1) mg/dl Direct Bilirubin 1.3 H (0-0.2) mg/dl AST 167 H (15-37) U/L ALT 46 (12-78) U/L Alkaline Phosphatase 310 H (45-117) U/L Total Protein 6.2 L (6.4-8.2) gm/dl Albumin 2.1 L (3.4-5.0) gm/dl Lipase (73-393) U/L CA 19-9 Antigen Urine Color Urine Appearance (Clear) Urine pH (4.5-7.5) Ur Specific [place] (1.000-1.030) Urine Protein (Negative) Urine Glucose (UA) (Negative) Urine Ketones (Negative) Urine Blood (Negative) Urine Nitrite (Negative) Urine Bilirubin (Negative) Urine Urobilinogen (Negative) Ur Leukocyte Esterase (Negative) Hepatitis C Ab Screen (Neg) 05/12/19 05/12/19 05/12/19 Range/Units 04:55 04:55 04:55 WBC 7.70 (4.8-10.8) K/uL RBC 4.38 L (4.7-6.1) M/uL Hgb 11.5 L (14.0-18.0) g/dL Hct 36.5 L (42-52) % MCV 83.3 (80-100) fL MCH 26.3 (25-34) pg MCHC 31.5 L (32-36) g/dL RDW Std Deviation 46.9 H (36.4-46.3) fL RDW Coeff of Lesley 15.4 H (11.5-14.5) % Plt Count 150 (130-400) K/uL MPV 11.0 H (7.4-10.4) fL Immature Gran % (Auto) 0.4 % Neut % (Auto) 81.8 % Lymph % (Auto) 8.2 % [place] % (Auto) 9.5 % Eos % (Auto) 0.1 % Baso % (Auto) 0.0 % Immature Gran # (Auto) 0.03 H (0.00-0.02) K/uL Neut # (Auto) 6.30 (1.4-6.5) K/uL Lymph # (Auto) 0.63 L (1.2-3.4) K/uL [place] # (Auto) 0.73 H (0.11-0.59) K/uL Eos # (Auto) 0.01 (0-0.5) K/uL Baso # (Auto) 0.00 (0-0.2) K/uL PT (9.0-12.0) Seconds INR (0.9-1.1) Sodium 138 (136-145) mmol/L Potassium 4.9 (3.5-5.1) mmol/L Chloride 105 (98-107) mmol/L Carbon Dioxide 27 (21-32) mmol/L Anion Gap 6.0 (3-11) BUN 27 H (7-18) mg/dl Creatinine 1.04 (0.6-1.4) mg/dl Est Cr Clr Drug Dosing 74.0 ml/min Est GFR ( Amer) 85.1 Est GFR (Non-Af Amer) 73.4 BUN/Creatinine Ratio 26.3 H (10-20) Glucose 101 H (70-99) mg/dl POC Glucose (70-99) Estimat Average Glucose 163 mg/dl Hemoglobin A1c 7.3 H (4.5-5.6) % Calcium 11.4 H (8.5-10.1) mg/dl Ionized Calcium (1.12-1.32) mmol/L Phosphorus (2.5-4.9) mg/dl Magnesium (1.8-2.4) mg/dl Total Bilirubin (0.2-1) mg/dl Direct Bilirubin (0-0.2) mg/dl AST (15-37) U/L ALT (12-78) U/L Alkaline Phosphatase (45-117) U/L Total Protein (6.4-8.2) gm/dl Albumin (3.4-5.0) gm/dl Lipase (73-393) U/L CA 19-9 Antigen Urine Color Urine Appearance (Clear) Urine pH (4.5-7.5) Ur Specific [place] (1.000-1.030) Urine Protein (Negative) Urine Glucose (UA) (Negative) Urine Ketones (Negative) Urine Blood (Negative) Urine Nitrite (Negative) Urine Bilirubin (Negative) Urine Urobilinogen (Negative) Ur Leukocyte Esterase (Negative) Hepatitis C Ab Screen (Neg) 05/11/19 05/11/19 05/11/19 Range/Units 20:14 20:14 19:58 WBC (4.8-10.8) K/uL RBC (4.7-6.1) M/uL Hgb (14.0-18.0) g/dL Hct (42-52) % MCV (80-100) fL MCH (25-34) pg MCHC (32-36) g/dL RDW Std Deviation (36.4-46.3) fL RDW Coeff of Lesley (11.5-14.5) % Plt Count (130-400) K/uL MPV (7.4-10.4) fL Immature Gran % (Auto) % Neut % (Auto) % Lymph % (Auto) % [place] % (Auto) % Eos % (Auto) % Baso % (Auto) % Immature Gran # (Auto) (0.00-0.02) K/uL Neut # (Auto) (1.4-6.5) K/uL Lymph # (Auto) (1.2-3.4) K/uL [place] # (Auto) (0.11-0.59) K/uL Eos # (Auto) (0-0.5) K/uL Baso # (Auto) (0-0.2) K/uL PT (9.0-12.0) Seconds INR (0.9-1.1) Sodium 135 L (136-145) mmol/L Potassium 4.3 (3.5-5.1) mmol/L Chloride 100 (98-107) mmol/L Carbon Dioxide 26 (21-32) mmol/L Anion Gap 9.0 (3-11) BUN 28 H (7-18) mg/dl Creatinine 1.29 (0.6-1.4) mg/dl Est Cr Clr Drug Dosing 59.7 ml/min Est GFR ( Amer) 65.6 Est GFR (Non-Af Amer) 56.6 BUN/Creatinine Ratio 21.8 H (10-20) Glucose 120 H (70-99) mg/dl POC Glucose 202 H (70-99) Estimat Average Glucose mg/dl Hemoglobin A1c (4.5-5.6) % Calcium 11.5 H (8.5-10.1) mg/dl Ionized Calcium 1.38 H (1.12-1.32) mmol/L Phosphorus (2.5-4.9) mg/dl Magnesium (1.8-2.4) mg/dl Total Bilirubin (0.2-1) mg/dl Direct Bilirubin (0-0.2) mg/dl AST (15-37) U/L ALT (12-78) U/L Alkaline Phosphatase (45-117) U/L Total Protein (6.4-8.2) gm/dl Albumin (3.4-5.0) gm/dl Lipase (73-393) U/L CA 19-9 Antigen Urine Color Urine Appearance (Clear) Urine pH (4.5-7.5) Ur Specific [place] (1.000-1.030) Urine Protein (Negative) Urine Glucose (UA) (Negative) Urine Ketones (Negative) Urine Blood (Negative) Urine Nitrite (Negative) Urine Bilirubin (Negative) Urine Urobilinogen (Negative) Ur Leukocyte Esterase (Negative) Hepatitis C Ab Screen (Neg) 05/11/19 05/11/19 05/11/19 Range/Units 16:38 15:42 14:14 WBC (4.8-10.8) K/uL RBC (4.7-6.1) M/uL Hgb (14.0-18.0) g/dL Hct (42-52) % MCV (80-100) fL MCH (25-34) pg MCHC (32-36) g/dL RDW Std Deviation (36.4-46.3) fL RDW Coeff of Lesley (11.5-14.5) % Plt Count (130-400) K/uL MPV (7.4-10.4) fL Immature Gran % (Auto) % Neut % (Auto) % Lymph % (Auto) % [place] % (Auto) % Eos % (Auto) % Baso % (Auto) % Immature Gran # (Auto) (0.00-0.02) K/uL Neut # (Auto) (1.4-6.5) K/uL Lymph # (Auto) (1.2-3.4) K/uL [place] # (Auto) (0.11-0.59) K/uL Eos # (Auto) (0-0.5) K/uL Baso # (Auto) (0-0.2) K/uL PT (9.0-12.0) Seconds INR (0.9-1.1) Sodium (136-145) mmol/L Potassium (3.5-5.1) mmol/L Chloride (98-107) mmol/L Carbon Dioxide (21-32) mmol/L Anion Gap (3-11) BUN (7-18) mg/dl Creatinine (0.6-1.4) mg/dl Est Cr Clr Drug Dosing ml/min Est GFR ( Amer) Est GFR (Non-Af Amer) BUN/Creatinine Ratio (10-20) Glucose (70-99) mg/dl POC Glucose 136 H (70-99) Estimat Average Glucose mg/dl Hemoglobin A1c (4.5-5.6) % Calcium (8.5-10.1) mg/dl Ionized Calcium (1.12-1.32) mmol/L Phosphorus (2.5-4.9) mg/dl Magnesium (1.8-2.4) mg/dl Total Bilirubin (0.2-1) mg/dl Direct Bilirubin (0-0.2) mg/dl AST (15-37) U/L ALT (12-78) U/L Alkaline Phosphatase (45-117) U/L Total Protein (6.4-8.2) gm/dl Albumin (3.4-5.0) gm/dl Lipase (73-393) U/L CA 19-9 Antigen Urine Color Dark Yellow Urine Appearance Clear (Clear) Urine pH 5.0 (4.5-7.5) Ur Specific [place] 1.037 H (1.000-1.030) Urine Protein Negative (Negative) Urine Glucose (UA) 3+ H (Negative) Urine Ketones Trace H (Negative) Urine Blood Negative (Negative) Urine Nitrite Negative (Negative) Urine Bilirubin Negative (Negative) Urine Urobilinogen Positive H (Negative) Ur Leukocyte Esterase Negative (Negative) Hepatitis C Ab Screen Neg (Neg) 05/11/19 05/11/19 05/11/19 Range/Units 14:12 14:12 14:12 WBC (4.8-10.8) K/uL RBC (4.7-6.1) M/uL Hgb (14.0-18.0) g/dL Hct (42-52) % MCV (80-100) fL MCH (25-34) pg MCHC (32-36) g/dL RDW Std Deviation (36.4-46.3) fL RDW Coeff of Lesley (11.5-14.5) % Plt Count (130-400) K/uL MPV (7.4-10.4) fL Immature Gran % (Auto) % Neut % (Auto) % Lymph % (Auto) % [place] % (Auto) % Eos % (Auto) % Baso % (Auto) % Immature Gran # (Auto) (0.00-0.02) K/uL Neut # (Auto) (1.4-6.5) K/uL Lymph # (Auto) (1.2-3.4) K/uL [place] # (Auto) (0.11-0.59) K/uL Eos # (Auto) (0-0.5) K/uL Baso # (Auto) (0-0.2) K/uL PT 12.2 H (9.0-12.0) Seconds INR 1.2 H (0.9-1.1) Sodium 133 L (136-145) mmol/L Potassium 4.3 (3.5-5.1) mmol/L Chloride 101 (98-107) mmol/L Carbon Dioxide 25 (21-32) mmol/L Anion Gap 7.0 (3-11) BUN 30 H (7-18) mg/dl Creatinine 1.07 (0.6-1.4) mg/dl Est Cr Clr Drug Dosing 71.9 ml/min Est GFR ( Amer) 82.2 Est GFR (Non-Af Amer) 71.0 BUN/Creatinine Ratio 27.8 H (10-20) Glucose 130 H (70-99) mg/dl POC Glucose (70-99) Estimat Average Glucose mg/dl Hemoglobin A1c (4.5-5.6) % Calcium 11.5 H (8.5-10.1) mg/dl Ionized Calcium (1.12-1.32) mmol/L Phosphorus 3.0 (2.5-4.9) mg/dl Magnesium 2.4 (1.8-2.4) mg/dl Total Bilirubin 2.0 H (0.2-1) mg/dl Direct Bilirubin 1.4 H (0-0.2) mg/dl AST 184 H (15-37) U/L ALT 55 (12-78) U/L Alkaline Phosphatase 372 H (45-117) U/L Total Protein 7.4 (6.4-8.2) gm/dl Albumin 2.5 L (3.4-5.0) gm/dl Lipase 81 (73-393) U/L CA 19-9 Antigen Pending Urine Color Urine Appearance (Clear) Urine pH (4.5-7.5) Ur Specific [place] (1.000-1.030) Urine Protein (Negative) Urine Glucose (UA) (Negative) Urine Ketones (Negative) Urine Blood (Negative) Urine Nitrite (Negative) Urine Bilirubin (Negative) Urine Urobilinogen (Negative) Ur Leukocyte Esterase (Negative) Hepatitis C Ab Screen (Neg) 05/11/19 05/11/19 Range/Units 14:12 13:58 WBC 7.98 (4.8-10.8) K/uL RBC 4.62 L (4.7-6.1) M/uL Hgb 12.2 L (14.0-18.0) g/dL Hct 38.6 L (42-52) % MCV 83.5 (80-100) fL MCH 26.4 (25-34) pg MCHC 31.6 L (32-36) g/dL RDW Std Deviation 46.7 H (36.4-46.3) fL RDW Coeff of Lesley 15.3 H (11.5-14.5) % Plt Count 196 (130-400) K/uL MPV 10.7 H (7.4-10.4) fL Immature Gran % (Auto) 0.4 % Neut % (Auto) 86.7 % Lymph % (Auto) 5.0 % [place] % (Auto) 7.8 % Eos % (Auto) 0.1 % Baso % (Auto) 0.0 % Immature Gran # (Auto) 0.03 H (0.00-0.02) K/uL Neut # (Auto) 6.92 H (1.4-6.5) K/uL Lymph # (Auto) 0.40 L (1.2-3.4) K/uL [place] # (Auto) 0.62 H (0.11-0.59) K/uL Eos # (Auto) 0.01 (0-0.5) K/uL Baso # (Auto) 0.00 (0-0.2) K/uL PT (9.0-12.0) Seconds INR (0.9-1.1) Sodium (136-145) mmol/L Potassium (3.5-5.1) mmol/L Chloride (98-107) mmol/L Carbon Dioxide (21-32) mmol/L Anion Gap (3-11) BUN (7-18) mg/dl Creatinine (0.6-1.4) mg/dl Est Cr Clr Drug Dosing ml/min Est GFR ( Amer) Est GFR (Non-Af Amer) BUN/Creatinine Ratio (10-20) Glucose (70-99) mg/dl POC Glucose 173 H (70-99) Estimat Average Glucose mg/dl Hemoglobin A1c (4.5-5.6) % Calcium (8.5-10.1) mg/dl Ionized Calcium (1.12-1.32) mmol/L Phosphorus (2.5-4.9) mg/dl Magnesium (1.8-2.4) mg/dl Total Bilirubin (0.2-1) mg/dl Direct Bilirubin (0-0.2) mg/dl AST (15-37) U/L ALT (12-78) U/L Alkaline Phosphatase (45-117) U/L Total Protein (6.4-8.2) gm/dl Albumin (3.4-5.0) gm/dl Lipase (73-393) U/L CA 19-9 Antigen Urine Color Urine Appearance (Clear) Urine pH (4.5-7.5) Ur Specific [place] (1.000-1.030) Urine Protein (Negative) Urine Glucose (UA) (Negative) Urine Ketones (Negative) Urine Blood (Negative) Urine Nitrite (Negative) Urine Bilirubin (Negative) Urine Urobilinogen (Negative) Ur Leukocyte Esterase (Negative) Hepatitis C Ab Screen (Neg)
[2019-05-12] MEDS ORDERED: FUROSEMIDE 20 MG in SYRINGE 0 ML IV ONE (12:00)
--- NOTE | 2019-05-12 13:12 | Nuclear Medicine Report ---
NUCLEAR HEPATOBILIARY SCAN CLINICAL HISTORY: Right upper quadrant abdominal pain. Cholelithiasis. COMPARISON STUDY: Abdominal ultrasound dated 05/11/2019. TECHNIQUE: Dynamic images of the liver and anterior abdomen were obtained every 5 minutes for a total of 50 minutes following the IV administration of 5.6mCi of technetium 99m Choletec. Additional delay ed images were obtained at 60 minutes. FINDINGS: The hepatobiliary scan shows markedly heterogeneous and slightly delayed uptake. There is v isualized activity within the intra and extrahepatic biliary tree at 15 minutes. There is normal maikel iary to bowel transit, with small bowel visualized by 20 minutes. There is filling of the gallbladder identified by 30 minutes, which has resolved at 50 minutes. IMPRESSION: 1. There is no scintigraphic evidence of acute cholecystitis. 2. There is markedly heterogeneous hepatic activity, likely related to hepatic masses seen on yesterd ay's ultrasound. ACT 112: Negative or not required by law. Electronically signed by: James Cavazos M.D. 05/12/2019 1:10 PM
[2019-05-12] MEDS: OXYCODONE HCL IR 5 MG TAB (IMMEDIATE RELEASE) PO PRN (13:45)
[2019-05-12] MEDS ORDERED: FUROSEMIDE 10 MG in SYRINGE 0 ML IV ONE (13:55)
[2019-05-12] MEDS: POLYETHYLENE (MIRALAX) 17 GM PACK PO SCH (14:11)
[2019-05-12 14:24] LABS: Calcium 10.4 mg/dl (8.5-10.1); Creatinine Clr Calc Pharmacy 81.9 ml/min; Est GFR (African American) 97.4; Est GFR (Non-African American) 84.1
[2019-05-12] MEDS ORDERED: SODIUM CHLORIDE 0.9% 1000ML 500 ML IV ONE (14:24)
--- NOTE | 2019-05-12 16:22 | Hospitalist Progress Note ---
Date of Service May 12, 2019 Assessment & Plan (1) Abdominal malignancy: * Patient with recently identified abdominal mass highly suspicious for malignancy-- abd wall, liver, spleen, with hypercalcemia. -- will consult HIM for [place] records * CA 19-9 pending * Added Alpha protein level-- pending * Pain control with OxyIR/Morphine * Hematology/Oncology consultation * Patient also with elevated Calcium, 11.5 on admission with albumin 2.5 --> corrected calcium * NSS at 125mL/hr x 2 liters -- given pamidronate 60mg and IVF, with 20mg IV Lasix yesterday--> repeat Calcium 11.4, corrected 12.9 today--> given calcitonin nasal spray and additional fluids today, 10mg IV Lasix * Patient with borderline hypotension and fever 37.7C last evening -- Procalcitonin elevated at 0.92, Lactic 1.9obtaining blood cultures, bolus 1L NSS, transfer to telemetry --> repeat bolus as BP continuing to be 99/63 this afternoon * Initiated Unasyn/Metronidazole for empiric coverage * General surgery consult -- able to do port placement Wednesday, but patient would need to be off Brilinta * Concerns for acute cholecystitis given elevated WBC, fever, anorexia, RUQ pain --> Ultrasound with wall thickening. Tbili continues to be 2.0 today --> HIDA scan performed -- negative for acute cholecystitis --> If patient requires surgery for GB, general surgery rec transfer for tertiary care * Called radiology for possible biopsy -- unable to perform today given patient on Brilinta (spoke with Dr. Way) -- no procedures this weekend --> per Dr. Ron conversation this evening, would be able to be done Wednesday at the earliest. * --> Will obtain dedicated CT Liver for biopsy prior to Wednesday * Palliative Care consultation after diagnosis (2) Diabetes: * Patient reports adequate control with home medications, Metformin, Jardiance and Tradjenta. * Hold oral agents while inpatient * ISS while inpatient * A1c today 7.3% (3) CAD (coronary artery disease): * Patient reports history of CAD s/p stent placement x 2 in [place] in May 2018. He is presently taking Brillinta. Denies CP/Palpitaitons/Orthopnea/SOB/Dizziness. * EKG with left axis deviation, nonspecific ST and T wave abnormality * Tx to telemetry as above * Requested records as above -- patient has been on Brilinta for one year -- to be on hold for port/liver biopsy * Continue atorvastatin 80mg, metoprolol 12.5mg, losartan 50mg (4) BPH (benign prostatic hyperplasia): * Patient reports weak urinary stream. Bladder scan as needed * Continue Flomax 0.4mg po daily (5) Acid reflux: * Stable * Continue omeprazole (6) Severe protein-calorie malnutrition: (7) Hypotension: (8) Gallstones: (9) Hypercalcemia: (10) DVT prophylaxis: * Lovenox SQ Dispo: transferred to telemetry, likely inpatient through Wednesday for liver biopsy Supervising Physician Co-Signing Physician Notes Attending Attestation & Progress Note: Pt seen/examined, chart reviewed, care plan extensively discussed with CARLOS Novak. I agree w/ the can components of her documentation. 68yo male with CAD and T2DM admitted for w/u of large liver lesions concerning for metastatic cancer. Overnight had low-grade fever to 37.7. RUQ u/s showed the liver lesions but also numerous gallstones and signs of gall bladder inflammation. He has had severe right sided abdominal pain much of which is in the RUQ. This am the patient developed hypotension necessitating fluid bolus. No significant response to such, and additional fluid boluses were given. He was transferred to telemetry, blood cx's were drawn, and he was started on IV abx in the event he had acute cholecysititis. Hypercalcemia has been treated as well with IVF and some lasix. I saw the patient at bedside this evening with CARLOS Novak. He stated the pain meds have been helping. reports fevers/chills/sweats for 1-2 weeks at home along with deterioration overall in the last 2-3 days. exam: gen - sickly, dehydrated mouth - MM very dry neck - no JVD heart - RRR, s1 s1, no murmur lungs - decreased BS right base, CTA otherwise abd - distended, very tender RUQ, BS+ ext - no edema, pulses 2+ b/l labs reviewed imaging reviewed A/P: 1. hypotension - concern for developing sepsis. 2. gallstones, gall bladder thickening/fluid - concerning for acute cholecystitis despite the negative HIDA scan. 3. large liver masses concerning for metastatic cancer. 4. hypercalcemia likely due to malignancy. 5. CAD. 6. BPH, HTN. 7. right-sided abd pain - either due to liver mets, cholecystitis, or combination of both issues. Downgrade diet to clears; any worsening in abd pain then strict NPO. Copious IV fluids. IV abx. Give glucagon to reverse beta cameron. Hold ARB. Keep MAP >65. Agree w/ Rx of hypercalcemia as Ms Novak is doing; hold on lasix in light of #1. Gen surgery following for #2. If any worsening or refractory hypotension then ICU transfer. updated at bedside. critical care time - 70 minutes Khai Ramirez MD Subjective Patient evaluated this morning. Continued to have right sided flank/abdominal pain, which has been well controlled with IV pain medication, but makes abdominal examination difficult. Patient states he had been having a fever, decreased appetite, right sided pain. His appetite is improved. Patient and frustrated with getting the run around over the past several months with obtaining a diagnosis. Initially found lesions on his liver, spleen on CT in [place], but was never set up for biopsy. Sent over for direct admission yesterday. Patient takes Brilinta s/p [place]/stent May 2018 in [place], unsure the name of his relays draftsperson but agreeable to obtain records. Understands findings concerning for acute cholecystis and need for HIDA scan to rule out obstruction vs from liver lesions. If patient requires surgery for gallbladder, would need sent to [facility] per patient request. If HIDA is negative, and patient remains stable, may be able to place port on Wednesday and liver biopsy with radiology. Review of Systems Constitutional: + fever, + chills, + anorexia and + weight loss Eyes: no diplopia and no problem reported Ear, Nose, Mouth, Throat: no sore throat and no dysphagia Respiratory: no cough and no dyspnea Cardiovascular: no chest pain, no palpitations and no edema Gastrointestinal: + abdominal pain (right sided) and + nausea; no vomiting, no hematemesis, no constipation and no diarrhea/loose stools Genitourinary: no dysuria and no hematuria Musculoskeletal: + back pain and + body aches Integumentary: no rash and no lesions Neurologic: no numbness and no paresthesia Psychiatric: no depression and no anxiety Endocrine: + fatigue Physical Exam Constitutional: WD/WN, vitals as above no acute distress pale Eyes: + anicteric sclerae and PERRL ENMT: dry mucus membranes Neck: trachea midline, no thyromegaly Respiratory: normal respiratory effort; no respiratory distress and no labored breathing Auscultation: lungs clear to auscultation bilaterally and + crackles Cardiovascular: RRR, no murmur, no edema Gastrointestinal (Abdomen): Inspection/Auscultation: normal bowel sounds Percussion/Palpation: + abdomen tender, abdomen soft and + hepatomegaly; no guarding and abdomen not rigid Musculoskeletal: no cyanosis or clubbing, extremities motor strength 5/5 Skin: no rashes, warm and dry Neurologic: patellar DTR's 2+ bilat, sensation intact Psychiatric: A+Ox3, euthymic affect Lymphatic: no cervical or axillary lymphadenopathy Results & Data Vital Signs (Past 12 Hours) Vital Signs Temp Pulse Pulse Resp BP BP Pulse Ox 05/12/19 15:31 80 05/12/19 15:19 36.5 C 90 18 99/63 L 93 05/12/19 14:52 36.5 C 74 18 92/61 L 96 05/12/19 11:13 36.4 C L 90 18 86/53 L 86/50 L 94 05/12/19 07:00 36.4 C L 95 H 20 111/73 95 Laboratory Results 05/12/19 05/12/19 05/12/19 Range/Units 16:15 14:47 14:47 WBC (4.8-10.8) K/uL RBC (4.7-6.1) M/uL Hgb (14.0-18.0) g/dL Hct (42-52) % MCV (80-100) fL MCH (25-34) pg MCHC (32-36) g/dL RDW Std Deviation (36.4-46.3) fL RDW Coeff of Lesley (11.5-14.5) % Plt Count (130-400) K/uL MPV (7.4-10.4) fL Immature Gran % (Auto) % Neut % (Auto) % Lymph % (Auto) % [place] % (Auto) % Eos % (Auto) % Baso % (Auto) % Immature Gran # (Auto) (0.00-0.02) K/uL Neut # (Auto) (1.4-6.5) K/uL Lymph # (Auto) (1.2-3.4) K/uL [place] # (Auto) (0.11-0.59) K/uL Eos # (Auto) (0-0.5) K/uL Baso # (Auto) (0-0.2) K/uL PT (9.0-12.0) Seconds INR (0.9-1.1) Sodium (136-145) mmol/L Potassium (3.5-5.1) mmol/L Chloride (98-107) mmol/L Carbon Dioxide (21-32) mmol/L Anion Gap (3-11) BUN (7-18) mg/dl Creatinine (0.6-1.4) mg/dl Est Cr Clr Drug Dosing ml/min Est GFR ( Amer) Est GFR (Non-Af Amer) BUN/Creatinine Ratio (10-20) Glucose (70-99) mg/dl POC Glucose 195 H (70-99) Estimat Average Glucose mg/dl Hemoglobin A1c (4.5-5.6) % Lactate 1.9 (0.4-2.0) mmol/L Calcium (8.5-10.1) mg/dl Ionized Calcium (1.12-1.32) mmol/L Total Bilirubin (0.2-1) mg/dl Direct Bilirubin (0-0.2) mg/dl AST (15-37) U/L ALT (12-78) U/L Alkaline Phosphatase (45-117) U/L Total Protein (6.4-8.2) gm/dl Albumin (3.4-5.0) gm/dl Tumor Marker AFP Procalcitonin 0.92 H (0-0.5) ng/ml 05/12/19 05/12/19 05/12/19 Range/Units 13:41 13:41 11:22 WBC (4.8-10.8) K/uL RBC (4.7-6.1) M/uL Hgb (14.0-18.0) g/dL Hct (42-52) % MCV (80-100) fL MCH (25-34) pg MCHC (32-36) g/dL RDW Std Deviation (36.4-46.3) fL RDW Coeff of Lesley (11.5-14.5) % Plt Count (130-400) K/uL MPV (7.4-10.4) fL Immature Gran % (Auto) % Neut % (Auto) % Lymph % (Auto) % [place] % (Auto) % Eos % (Auto) % Baso % (Auto) % Immature Gran # (Auto) (0.00-0.02) K/uL Neut # (Auto) (1.4-6.5) K/uL Lymph # (Auto) (1.2-3.4) K/uL [place] # (Auto) (0.11-0.59) K/uL Eos # (Auto) (0-0.5) K/uL Baso # (Auto) (0-0.2) K/uL PT (9.0-12.0) Seconds INR (0.9-1.1) Sodium 136 (136-145) mmol/L Potassium 4.0 D (3.5-5.1) mmol/L Chloride 105 (98-107) mmol/L Carbon Dioxide 24 (21-32) mmol/L Anion Gap 7.0 (3-11) BUN 28 H (7-18) mg/dl Creatinine 0.93 (0.6-1.4) mg/dl Est Cr Clr Drug Dosing 81.9 ml/min Est GFR ( Amer) 97.4 Est GFR (Non-Af Amer) 84.1 BUN/Creatinine Ratio 30.0 H (10-20) Glucose 137 H (70-99) mg/dl POC Glucose 164 H (70-99) Estimat Average Glucose mg/dl Hemoglobin A1c (4.5-5.6) % Lactate (0.4-2.0) mmol/L Calcium 10.4 H (8.5-10.1) mg/dl Ionized Calcium (1.12-1.32) mmol/L Total Bilirubin (0.2-1) mg/dl Direct Bilirubin (0-0.2) mg/dl AST (15-37) U/L ALT (12-78) U/L Alkaline Phosphatase (45-117) U/L Total Protein (6.4-8.2) gm/dl Albumin (3.4-5.0) gm/dl Tumor Marker AFP Pending Procalcitonin (0-0.5) ng/ml 05/12/19 05/12/19 05/12/19 Range/Units 11:21 11:20 09:02 WBC (4.8-10.8) K/uL RBC (4.7-6.1) M/uL Hgb (14.0-18.0) g/dL Hct (42-52) % MCV (80-100) fL MCH (25-34) pg MCHC (32-36) g/dL RDW Std Deviation (36.4-46.3) fL RDW Coeff of Lesley (11.5-14.5) % Plt Count (130-400) K/uL MPV (7.4-10.4) fL Immature Gran % (Auto) % Neut % (Auto) % Lymph % (Auto) % [place] % (Auto) % Eos % (Auto) % Baso % (Auto) % Immature Gran # (Auto) (0.00-0.02) K/uL Neut # (Auto) (1.4-6.5) K/uL Lymph # (Auto) (1.2-3.4) K/uL [place] # (Auto) (0.11-0.59) K/uL Eos # (Auto) (0-0.5) K/uL Baso # (Auto) (0-0.2) K/uL PT 13.4 H (9.0-12.0) Seconds INR 1.3 H (0.9-1.1) Sodium (136-145) mmol/L Potassium (3.5-5.1) mmol/L Chloride (98-107) mmol/L Carbon Dioxide (21-32) mmol/L Anion Gap (3-11) BUN (7-18) mg/dl Creatinine (0.6-1.4) mg/dl Est Cr Clr Drug Dosing ml/min Est GFR ( Amer) Est GFR (Non-Af Amer) BUN/Creatinine Ratio (10-20) Glucose (70-99) mg/dl POC Glucose 170 H 344 H* (70-99) Estimat Average Glucose mg/dl Hemoglobin A1c (4.5-5.6) % Lactate (0.4-2.0) mmol/L Calcium (8.5-10.1) mg/dl Ionized Calcium (1.12-1.32) mmol/L Total Bilirubin (0.2-1) mg/dl Direct Bilirubin (0-0.2) mg/dl AST (15-37) U/L ALT (12-78) U/L Alkaline Phosphatase (45-117) U/L Total Protein (6.4-8.2) gm/dl Albumin (3.4-5.0) gm/dl Tumor Marker AFP Procalcitonin (0-0.5) ng/ml 05/12/19 05/12/19 05/12/19 Range/Units 09:02 07:45 04:55 WBC (4.8-10.8) K/uL RBC (4.7-6.1) M/uL Hgb (14.0-18.0) g/dL Hct (42-52) % MCV (80-100) fL MCH (25-34) pg MCHC (32-36) g/dL RDW Std Deviation (36.4-46.3) fL RDW Coeff of Lesley (11.5-14.5) % Plt Count (130-400) K/uL MPV (7.4-10.4) fL Immature Gran % (Auto) % Neut % (Auto) % Lymph % (Auto) % [place] % (Auto) % Eos % (Auto) % Baso % (Auto) % Immature Gran # (Auto) (0.00-0.02) K/uL Neut # (Auto) (1.4-6.5) K/uL Lymph # (Auto) (1.2-3.4) K/uL [place] # (Auto) (0.11-0.59) K/uL Eos # (Auto) (0-0.5) K/uL Baso # (Auto) (0-0.2) K/uL PT (9.0-12.0) Seconds INR (0.9-1.1) Sodium 138 (136-145) mmol/L Potassium 4.9 (3.5-5.1) mmol/L Chloride 105 (98-107) mmol/L Carbon Dioxide 27 (21-32) mmol/L Anion Gap 6.0 (3-11) BUN 27 H (7-18) mg/dl Creatinine 1.04 (0.6-1.4) mg/dl Est Cr Clr Drug Dosing 74.0 ml/min Est GFR ( Amer) 85.1 Est GFR (Non-Af Amer) 73.4 BUN/Creatinine Ratio 26.3 H (10-20) Glucose 101 H (70-99) mg/dl POC Glucose 246 H (70-99) Estimat Average Glucose mg/dl Hemoglobin A1c (4.5-5.6) % Lactate (0.4-2.0) mmol/L Calcium 11.4 H (8.5-10.1) mg/dl Ionized Calcium (1.12-1.32) mmol/L Total Bilirubin 2.0 H (0.2-1) mg/dl Direct Bilirubin 1.3 H (0-0.2) mg/dl AST 167 H (15-37) U/L ALT 46 (12-78) U/L Alkaline Phosphatase 310 H (45-117) U/L Total Protein 6.2 L (6.4-8.2) gm/dl Albumin 2.1 L (3.4-5.0) gm/dl Tumor Marker AFP Procalcitonin (0-0.5) ng/ml 05/12/19 05/12/19 05/11/19 Range/Units 04:55 04:55 20:14 WBC 7.70 (4.8-10.8) K/uL RBC 4.38 L (4.7-6.1) M/uL Hgb 11.5 L (14.0-18.0) g/dL Hct 36.5 L (42-52) % MCV 83.3 (80-100) fL MCH 26.3 (25-34) pg MCHC 31.5 L (32-36) g/dL RDW Std Deviation 46.9 H (36.4-46.3) fL RDW Coeff of Lesley 15.4 H (11.5-14.5) % Plt Count 150 (130-400) K/uL MPV 11.0 H (7.4-10.4) fL Immature Gran % (Auto) 0.4 % Neut % (Auto) 81.8 % Lymph % (Auto) 8.2 % [place] % (Auto) 9.5 % Eos % (Auto) 0.1 % Baso % (Auto) 0.0 % Immature Gran # (Auto) 0.03 H (0.00-0.02) K/uL Neut # (Auto) 6.30 (1.4-6.5) K/uL Lymph # (Auto) 0.63 L (1.2-3.4) K/uL [place] # (Auto) 0.73 H (0.11-0.59) K/uL Eos # (Auto) 0.01 (0-0.5) K/uL Baso # (Auto) 0.00 (0-0.2) K/uL PT (9.0-12.0) Seconds INR (0.9-1.1) Sodium (136-145) mmol/L Potassium (3.5-5.1) mmol/L Chloride (98-107) mmol/L Carbon Dioxide (21-32) mmol/L Anion Gap (3-11) BUN (7-18) mg/dl Creatinine (0.6-1.4) mg/dl Est Cr Clr Drug Dosing ml/min Est GFR ( Amer) Est GFR (Non-Af Amer) BUN/Creatinine Ratio (10-20) Glucose (70-99) mg/dl POC Glucose (70-99) Estimat Average Glucose 163 mg/dl Hemoglobin A1c 7.3 H (4.5-5.6) % Lactate (0.4-2.0) mmol/L Calcium (8.5-10.1) mg/dl Ionized Calcium 1.38 H (1.12-1.32) mmol/L Total Bilirubin (0.2-1) mg/dl Direct Bilirubin (0-0.2) mg/dl AST (15-37) U/L ALT (12-78) U/L Alkaline Phosphatase (45-117) U/L Total Protein (6.4-8.2) gm/dl Albumin (3.4-5.0) gm/dl Tumor Marker AFP Procalcitonin (0-0.5) ng/ml 05/11/19 05/11/19 05/11/19 Range/Units 20:14 19:58 16:38 WBC (4.8-10.8) K/uL RBC (4.7-6.1) M/uL Hgb (14.0-18.0) g/dL Hct (42-52) % MCV (80-100) fL MCH (25-34) pg MCHC (32-36) g/dL RDW Std Deviation (36.4-46.3) fL RDW Coeff of Lesley (11.5-14.5) % Plt Count (130-400) K/uL MPV (7.4-10.4) fL Immature Gran % (Auto) % Neut % (Auto) % Lymph % (Auto) % [place] % (Auto) % Eos % (Auto) % Baso % (Auto) % Immature Gran # (Auto) (0.00-0.02) K/uL Neut # (Auto) (1.4-6.5) K/uL Lymph # (Auto) (1.2-3.4) K/uL [place] # (Auto) (0.11-0.59) K/uL Eos # (Auto) (0-0.5) K/uL Baso # (Auto) (0-0.2) K/uL PT (9.0-12.0) Seconds INR (0.9-1.1) Sodium 135 L (136-145) mmol/L Potassium 4.3 (3.5-5.1) mmol/L Chloride 100 (98-107) mmol/L Carbon Dioxide 26 (21-32) mmol/L Anion Gap 9.0 (3-11) BUN 28 H (7-18) mg/dl Creatinine 1.29 (0.6-1.4) mg/dl Est Cr Clr Drug Dosing 59.7 ml/min Est GFR ( Amer) 65.6 Est GFR (Non-Af Amer) 56.6 BUN/Creatinine Ratio 21.8 H (10-20) Glucose 120 H (70-99) mg/dl POC Glucose 202 H 136 H (70-99) Estimat Average Glucose mg/dl Hemoglobin A1c (4.5-5.6) % Lactate (0.4-2.0) mmol/L Calcium 11.5 H (8.5-10.1) mg/dl Ionized Calcium (1.12-1.32) mmol/L Total Bilirubin (0.2-1) mg/dl Direct Bilirubin (0-0.2) mg/dl AST (15-37) U/L ALT (12-78) U/L Alkaline Phosphatase (45-117) U/L Total Protein (6.4-8.2) gm/dl Albumin (3.4-5.0) gm/dl Tumor Marker AFP Procalcitonin (0-0.5) ng/ml PG Care Time/CCT Total # of Minutes Spent Total Time Spent with Patient: Total time spent is greater than 50% in coordination of care (as documented) at patient's floor/unit and/or counseling patient: Critical Care Time: Yes Total Critical Care Time: 70 (1) BPH (benign prostatic hyperplasia) Lower urinary tract symptom detail: weak urinary stream Lower urinary tract symptom presence: symptoms present Qualified Code(s): N40.1 - Benign prostatic hyperplasia with lower urinary tract symptoms; R39.12 - Poor urinary stream (2) Diabetes Diabetes mellitus complication status: without complication Diabetes mellitus nursing home insulin use: without termite inspector use Diabetes mellitus type: type 2 Qualified Code(s): E11.9 - Type 2 diabetes mellitus without complications (3) CAD (coronary artery disease) Associated angina: without angina Coronary Disease-Associated Artery/Lesion type: [place] artery [place] vs. transplanted heart: [place] heart Qualified Code(s): I25.10 - Atherosclerotic heart disease of [place] coronary artery without angina pectoris
[2019-05-12] MEDS ORDERED: SODIUM CHLORIDE 0.9% 1000ML 1,000 ML IV ONE (16:32)
[2019-05-12] MEDS: AMPICILLIN/SULBACTAM SOD 3,000 MG in 0.9 % SODIUM CHLORIDE 100 ML IV SCH ×2 (17:56→21:56)
[2019-05-12] MEDS: metroNIDAZOLE 500 MG/100 ML BAG IV SCH (18:46)
[2019-05-12] MEDS ORDERED: GLUCAGON 5 MG in SYRINGE 0 ML IV STA (19:23)
[2019-05-12] MEDS ORDERED: GLUCAGON 1 MG in SYRINGE 0 ML IV STA (19:36)
[2019-05-12] MEDS: ENOXAPARIN INJ 40 MG/0.4 ML SYR SQ SCH (19:38)
[2019-05-13] MEDS: SODIUM CHLORIDE 0.9% 1000ML 1,000 ML IV SCH ×5 (00:10→21:26)
[2019-05-13] MEDS: metroNIDAZOLE 500 MG/100 ML BAG IV SCH ×4 (00:11→23:45)
[2019-05-13] MEDS: HYDROmorphone INJ 1 MG/ML SYRINGE IV PRN ×6 (00:35→22:55)
[2019-05-13] MEDS: AMPICILLIN/SULBACTAM SOD 3,000 MG in 0.9 % SODIUM CHLORIDE 100 ML IV SCH ×4 (03:48→22:02)
[2019-05-13 06:36] LABS: Eosinophils # (auto) 0.03 K/uL (0-0.5); Eosinophils % (auto) 0.6 %; Hematocrit (blood only) 33.3 % (42-52); Hemoglobin 10.4 g/dL (14.0-18.0); Immature Granulocytes # (auto) 0.03 K/uL (0.00-0.02); Immature Granulocytes % (auto) 0.6 %; Lymphocytes % (auto) 7.4 %; Mean Corpuscular Hemoglobin 25.9 pg (25-34); Mean Corpuscular Hgb Conc 31.2 g/dL (32-36); Mean Platelet Volume 10.9 fL (7.4-10.4); Monocytes # (auto) 0.44 K/uL (0.11-0.59); Monocytes % (auto) 8.2 %; Neutrophils # (auto) 4.49 K/uL (1.4-6.5); Neutrophils % (auto) 83.2 %; Platelet Count 121 K/uL (130-400); RDW Coefficient of Variation 15.5 % (11.5-14.5); RDW Standard Deviation 47.3 fL (36.4-46.3); Red Blood Count 4.01 M/uL (4.7-6.1); White Blood Count 5.39 K/uL (4.8-10.8)
[2019-05-13 06:48] LABS: INR 1.3 (0.9-1.1)
[2019-05-13 07:09] LABS: Albumin Level 1.9 gm/dl (3.4-5.0); BUN Creatinine Ratio 28.3 (10-20); Calcium 10.3 mg/dl (8.5-10.1); Est GFR (African American) 98.7; Est GFR (Non-African American) 85.2; Potassium 4.1 mmol/L (3.5-5.1)
[2019-05-13 07:12] LABS: Albumin Globulin Ratio 0.5 (0.9-2); Bilirubin,Total 1.7 mg/dl (0.2-1); Total Protein 5.9 gm/dl (6.4-8.2)
[2019-05-13] MEDS: INSULIN ASPART 100 UNITS/ML 3 ML PEN SC SCH ×4 (08:55→20:07)
[2019-05-13] MEDS ORDERED: IOVERSOL 100ml IV PRN (09:29)
[2019-05-13] MEDS: CALCITONIN SALMON NA 200 IU/AC 3.7 ML BTL SCH (09:34)
[2019-05-13] MEDS: TAMSULOSIN HCL 0.4 MG CAP PO SCH (09:35)
[2019-05-13] MEDS: PANTOprazole 40 MG TAB PO SCH (09:35)
[2019-05-13] MEDS: POLYETHYLENE (MIRALAX) 17 GM PACK PO SCH ×2 (09:36→16:55)
[2019-05-13] MEDS: ATORVASTATIN 40 MG TAB PO SCH (09:36)
--- NOTE | 2019-05-13 09:51 | CT Scan Report ---
HISTORY:: Multiphase CT liver HISTORY: Liver mass. COMPARISON: Ultrasound 05/11/2019 FINDINGS: Small right pleural effusion. Mild right basilar atelectasis. Calcified granuloma anterior aspect right lung base. Trace body wall anasarca. Small amount of scattered abdominal ascites. Probable hepatic cirrhotic jackeline nge. Diffuse heterogeneity of the liver. Dominant mass posterior aspect right hepatic lobe measuring 14 x 12 cm. Upper abdominal adenopathy. Periportal nodes measure up to 3.5 cm. Para-aortic and retroperito mary kate nodes are numerous and measures 2 4 cm. Peripancreatic nodes and mild mesenteric adenopathy is a lso present. Kidneys demonstrate several small cysts. No evidence for renal hydronephrosis. Nonobstructive bowel pattern. Mild atherosclerotic change abdominal aorta. Mild splenomegaly. IMPRESSION: 1. Findings of hepatic cirrhosis with mild scattered abdominal ascites. 2. Dominant mass posterior aspect right hepatic lobe measuring 14 x 12 cm. 3. Extensive upper abdominal and retroperitoneal adenopathy. 4. Small right pleural effusion with basilar atelectasis. 5. Mild body wall anasarca. 6. Mild splenomegaly. Electronically signed by: Santi Ron M.D. 05/13/2019 9:50 AM
[2019-05-13] MEDS: OXYCODONE HCL IR 5 MG TAB (IMMEDIATE RELEASE) PO PRN (11:26)
--- NOTE | 2019-05-13 11:30 | Hospitalist Progress Note ---
Date of Service May 13, 2019 Assessment & Plan (1) Abdominal malignancy: * Patient with recently identified abdominal mass highly suspicious for malignancy-- abd wall, liver, spleen, with hypercalcemia. -- will consult HIM for [place] records. * Dedicated CT Liver as above -- mass 12x14 cm R hepatic lobe * CA 19-9 pending * Added Alpha protein level-- pending * Hematology/Oncology consultation * Patient also with elevated Calcium, 11.5 -- see hypercalcemia below * Patient with borderline hypotension and fever 37.7C, Procalcitonin elevated at 0.92, Lactic 1.9 * Blood cultures pending * Multiple fluid boluses for hypotension * Initiated Unasyn/Metronidazole for empiric coverage * General surgery consult -- able to do port placement Wednesday, but patient would need to be off Brilinta --> given other more emergent concerns, will hold off on port placement for now -- will likely need placed in future for chemo pending biopsy results * Initially concerned for acute cholecystis given wall thickening, numerous stones, elevated tbili, RUQ pain, but HIDA scan negative. Tbili trending down, but still elevated at 1.7 * Dedicated Liver CT today --> dominant mass posterior aspect right hepatic lobe measuring [id number], extenside upper abd/retroperitonelal adenopathy, mild body wall anasarca -- mass may explain elevated bilirubin, but given initally elevated WBC, temp 37.7C on 05/11, anorexia and RUQ, concern for ascending cholangitis * MRCP pending * Called radiology for possible biopsy -- unable to perform given patient on Brilinta (spoke with Dr. Way) -- no procedures this weekend --> per Dr. Ron conversation last evening, would be able to be done Wednesday at the earliest. * Spoke with [facility] today, Dr. Camara (internal medicine) and Dr. Pugh (surgery). No transfer at this time. Recommended ERCP with possible stent placement. * Discussed with GI consultants intern, Dr. Ly --consult placed --> does not perform ERCP, but rec MRCP -- ordered --> if evidence of cholangitis, will need to reach back out to [facility] for transfer, as they are currently on critical capacity. * Procalcitonin elevated from 0.92 to 2.62 today, lactic acid 1.8. No further fevers or elevated WBC. * Continue Unasyn/metronidazole * Ammonia level 20 * Increased IVF -- NSS 200cc/hr -- patient continues to appear dry on exam * Palliative Care consultation after diagnosis (2) Diabetes: * Patient reports adequate control with home medications, Metformin, Jardiance and Tradjenta. * Hold oral agents while inpatient * ISS while inpatient * A1c 7.3% * Given glucagon 1mg x1 last evening to counteract effects of metoprolol, given low BP despite IVFs (3) CAD (coronary artery disease): * Patient reports history of CAD s/p stent placement x 2 in [place] in May 2018. He is presently taking Brillinta. Denies C P/Palpitaitons/Orthopnea/SOB/Dizziness. * EKG with left axis deviation, nonspecific ST and T wave abnormality * Tx to telemetry as above on 04/11 * Requested records as above -- patient has been on Brilinta for one year -- to be on hold for port/liver biopsy * Continue atorvastatin 80mg * Metoprolol 12.5mg, losartan 50mg on hold in setting of hypotension (4) BPH (benign prostatic hyperplasia): * Patient reports weak urinary stream. Bladder scan as needed * Continue Flomax 0.4mg po daily (5) Acid reflux: * Stable * Continue omeprazole (6) Severe protein-calorie malnutrition: * Secondary to liver mass, likely metastasis as well as possible underlying infectious process given elevated procal * Beading Machine Operator on consult (7) Hypotension: * Given 1L NSS bolus x 2, 500cc x 1 yesterday * Currently stable BP, 113/72 * Hold BB and BRIAN as above * Continue to monitor (8) Gallstones: * On imaging -- HIDA negative for acute GB * Given fever, elevated procalcitonin -- will continue abx * MRCP pending as above (9) Hypercalcemia: * As above -- * Patient also with elevated Calcium, 11.5 on admission with albumin 2.5 --> corrected calcium * NSS at 125mL/hr x 2 liters on admission for hypotension-- given pamidronate 60mg and IVF, with 20mg IV Lasix on 05/11 for hypercalcemia. * On calcitonin nasal spray currently, IVF @ 200mL/hr -- holding off on diuretics in the setting of hypotension * Calcium today 10.3 * Continue to monitor (10) DVT prophylaxis: * Lovenox SQ Dispo: likely inpatient through Wednesday for liver biopsy. If condition worsens, would need to reach back out to tertiary center for intervention. Supervising Physician Co-Signing Physician Notes Attending Attestation: Chart reviewed in detail, care plan d/w CARLOS Novak. I agree w/ the can components of her documentation. 68yo male with CAD, T2DM, BPH - with very large liver mass and cirrhosis on imaging. Numerous gallstones on u/s - some concern for acute cholecystitis given RUQ pain, elevated procalcitonin, hypotension, etc. Remains on fluids/abx for potential for cholecystitis. Attempts to transfer patient today to tertiary care were not successful. Prognosis is very guarded as the liver mass is highly indicative of an advanced cancer in the setting of liver cirrhosis. Agree w/ recs as suggested by Dr Ly. Cont supportive care. Khai Ramirez MD Subjective Continues to have right sided abdominal pain. Rated 8/10 this morning. Improved with pain medication, but still present at all times. More fatigued today. Still no BM. Feeling bloated. Nausea but no vomiting. Discussed possibility for transfer. Patient and agreeable. All questions/concerns answered and addressed. Update: After discussion with Laurie and GI, decided to obtain MRCP to r/o obstruction. If stenting required immediately, will require more emergent transfer. If without obstruction, possible biopsy on Wednesday and likely hepatobiliary surgery at tertiary center. Review of Systems Review of Systems: All systems reviewed & are unremarkable except as noted in HPI & below Constitutional: + fatigue, + anorexia and + weight loss Eyes: no eye pain and no problem reported Ear, Nose, Mouth, Throat: no sore throat and no dysphagia dry mouth Respiratory: no cough and no dyspnea Cardiovascular: + edema (slight); no chest pain and no palpitations Gastrointestinal: + abdominal pain (right sided), + belching, + bloating, + excessive flatulence and + constipation; no nausea and no vomiting Genitourinary: no dysuria and no hematuria Integumentary: no rash and no lesions Neurologic: no numbness and no paresthesia Allergy / Immunological: no cough and no rash Physical Exam Constitutional: + cachectic, cooperative and + malnourished; + not appropriately hydrated Eyes: + scleral abnormality (Icteric sclerae bilaterally) and PERRL ENMT: dry mucus membranes Respiratory: normal respiratory effort, lungs clear to auscultation Cardiovascular: Rate/Rhythm: regular rate and regular rhythm Heart Sounds: no murmur Extremities: + edema (trace b/l lower extremity) Gastrointestinal (Abdomen): Inspection/Auscultation: + abdomen distended, normal bowel sounds and + abdominal edema Percussion/Palpation: + abdomen tender, + hepatomegaly and + ascites Skin: no rashes, warm and dry Neurologic: patellar DTR's 2+ bilat, sensation intact Psychiatric: Orientation: alert and oriented x 3 Lymphatic: no cervical or axillary lymphadenopathy Results & Data Vital Signs (Past 12 Hours) Vital Signs Temp Pulse Pulse Resp BP BP Pulse Ox 05/13/19 09:00 80 05/13/19 07:30 37.2 C 84 18 113/72 94 05/13/19 04:05 36.9 C 91 H 16 95/60 L 94 05/13/19 00:34 83 108/64 Laboratory Results 05/13/19 05/13/19 05/13/19 Range/Units 07:48 05:57 05:57 WBC (4.8-10.8) K/uL RBC (4.7-6.1) M/uL Hgb (14.0-18.0) g/dL Hct (42-52) % MCV (80-100) fL MCH (25-34) pg MCHC (32-36) g/dL RDW Std Deviation (36.4-46.3) fL RDW Coeff of Leslye (11.5-14.5) % Plt Count (130-400) K/uL MPV (7.4-10.4) fL Immature Gran % (Auto) % Neut % (Auto) % Lymph % (Auto) % [place] % (Auto) % Eos % (Auto) % Baso % (Auto) % Immature Gran # (Auto) (0.00-0.02) K/uL Neut # (Auto) (1.4-6.5) K/uL Lymph # (Auto) (1.2-3.4) K/uL [place] # (Auto) (0.11-0.59) K/uL Eos # (Auto) (0-0.5) K/uL Baso # (Auto) (0-0.2) K/uL PT (9.0-12.0) Seconds INR (0.9-1.1) Sodium (136-145) mmol/L Potassium (3.5-5.1) mmol/L Chloride (98-107) mmol/L Carbon Dioxide (21-32) mmol/L Anion Gap (3-11) BUN (7-18) mg/dl Creatinine (0.6-1.4) mg/dl Est Cr Clr Drug Dosing ml/min Est GFR ( Amer) Est GFR (Non-Af Amer) BUN/Creatinine Ratio (10-20) Glucose (70-99) mg/dl POC Glucose 122 H (70-99) Lactate (0.4-2.0) mmol/L Calcium (8.5-10.1) mg/dl Magnesium (1.8-2.4) mg/dl Total Bilirubin (0.2-1) mg/dl AST (15-37) U/L ALT (12-78) U/L Alkaline Phosphatase (45-117) U/L Total Protein (6.4-8.2) gm/dl Albumin (3.4-5.0) gm/dl Globulin (2.5-4.0) gm/dl Albumin/Globulin Ratio (0.9-2) Lipase 75 (73-393) U/L Tumor Marker AFP Procalcitonin 2.62 H (0-0.5) ng/ml 05/13/19 05/13/19 05/13/19 Range/Units 05:57 05:57 05:57 WBC 5.39 (4.8-10.8) K/uL RBC 4.01 L (4.7-6.1) M/uL Hgb 10.4 L (14.0-18.0) g/dL Hct 33.3 L (42-52) % MCV 83.0 (80-100) fL MCH 25.9 (25-34) pg MCHC 31.2 L (32-36) g/dL RDW Std Deviation 47.3 H (36.4-46.3) fL RDW Coeff of Lesley 15.5 H (11.5-14.5) % Plt Count 121 L (130-400) K/uL MPV 10.9 H (7.4-10.4) fL Immature Gran % (Auto) 0.6 % Neut % (Auto) 83.2 % Lymph % (Auto) 7.4 % [place] % (Auto) 8.2 % Eos % (Auto) 0.6 % Baso % (Auto) 0.0 % Immature Gran # (Auto) 0.03 H (0.00-0.02) K/uL Neut # (Auto) 4.49 (1.4-6.5) K/uL Lymph # (Auto) 0.40 L (1.2-3.4) K/uL [place] # (Auto) 0.44 (0.11-0.59) K/uL Eos # (Auto) 0.03 (0-0.5) K/uL Baso # (Auto) 0.00 (0-0.2) K/uL PT 13.0 H (9.0-12.0) Seconds INR 1.3 H (0.9-1.1) Sodium 140 (136-145) mmol/L Potassium 4.1 (3.5-5.1) mmol/L Chloride 110 H (98-107) mmol/L Carbon Dioxide 23 (21-32) mmol/L Anion Gap 7.0 (3-11) BUN 26 H (7-18) mg/dl Creatinine 0.92 (0.6-1.4) mg/dl Est Cr Clr Drug Dosing 85.0 ml/min Est GFR ( Amer) 98.7 Est GFR (Non-Af Amer) 85.2 BUN/Creatinine Ratio 28.3 H (10-20) Glucose 98 (70-99) mg/dl POC Glucose (70-99) Lactate (0.4-2.0) mmol/L Calcium 10.3 H (8.5-10.1) mg/dl Magnesium 2.0 (1.8-2.4) mg/dl Total Bilirubin 1.7 H (0.2-1) mg/dl AST 149 H (15-37) U/L ALT 42 (12-78) U/L Alkaline Phosphatase 311 H (45-117) U/L Total Protein 5.9 L (6.4-8.2) gm/dl Albumin 1.9 L (3.4-5.0) gm/dl Globulin 4.0 (2.5-4.0) gm/dl Albumin/Globulin Ratio 0.5 L (0.9-2) Lipase (73-393) U/L Tumor Marker AFP Procalcitonin (0-0.5) ng/ml 05/12/19 05/12/19 05/12/19 Range/Units 20:20 16:15 14:47 WBC (4.8-10.8) K/uL RBC (4.7-6.1) M/uL Hgb (14.0-18.0) g/dL Hct (42-52) % MCV (80-100) fL MCH (25-34) pg MCHC (32-36) g/dL RDW Std Deviation (36.4-46.3) fL RDW Coeff of Lesley (11.5-14.5) % Plt Count (130-400) K/uL MPV (7.4-10.4) fL Immature Gran % (Auto) % Neut % (Auto) % Lymph % (Auto) % [place] % (Auto) % Eos % (Auto) % Baso % (Auto) % Immature Gran # (Auto) (0.00-0.02) K/uL Neut # (Auto) (1.4-6.5) K/uL Lymph # (Auto) (1.2-3.4) K/uL [place] # (Auto) (0.11-0.59) K/uL Eos # (Auto) (0-0.5) K/uL Baso # (Auto) (0-0.2) K/uL PT (9.0-12.0) Seconds INR (0.9-1.1) Sodium (136-145) mmol/L Potassium (3.5-5.1) mmol/L Chloride (98-107) mmol/L Carbon Dioxide (21-32) mmol/L Anion Gap (3-11) BUN (7-18) mg/dl Creatinine (0.6-1.4) mg/dl Est Cr Clr Drug Dosing ml/min Est GFR ( Amer) Est GFR (Non-Af Amer) BUN/Creatinine Ratio (10-20) Glucose (70-99) mg/dl POC Glucose 167 H 195 H (70-99) Lactate 1.9 (0.4-2.0) mmol/L Calcium (8.5-10.1) mg/dl Magnesium (1.8-2.4) mg/dl Total Bilirubin (0.2-1) mg/dl AST (15-37) U/L ALT (12-78) U/L Alkaline Phosphatase (45-117) U/L Total Protein (6.4-8.2) gm/dl Albumin (3.4-5.0) gm/dl Globulin (2.5-4.0) gm/dl Albumin/Globulin Ratio (0.9-2) Lipase (73-393) U/L Tumor Marker AFP Procalcitonin (0-0.5) ng/ml 05/12/19 05/12/19 05/12/19 Range/Units 14:47 13:41 13:41 WBC (4.8-10.8) K/uL RBC (4.7-6.1) M/uL Hgb (14.0-18.0) g/dL Hct (42-52) % MCV (80-100) fL MCH (25-34) pg MCHC (32-36) g/dL RDW Std Deviation (36.4-46.3) fL RDW Coeff of Lesley (11.5-14.5) % Plt Count (130-400) K/uL MPV (7.4-10.4) fL Immature Gran % (Auto) % Neut % (Auto) % Lymph % (Auto) % [place] % (Auto) % Eos % (Auto) % Baso % (Auto) % Immature Gran # (Auto) (0.00-0.02) K/uL Neut # (Auto) (1.4-6.5) K/uL Lymph # (Auto) (1.2-3.4) K/uL [place] # (Auto) (0.11-0.59) K/uL Eos # (Auto) (0-0.5) K/uL Baso # (Auto) (0-0.2) K/uL PT (9.0-12.0) Seconds INR (0.9-1.1) Sodium 136 (136-145) mmol/L Potassium 4.0 D (3.5-5.1) mmol/L Chloride 105 (98-107) mmol/L Carbon Dioxide 24 (21-32) mmol/L Anion Gap 7.0 (3-11) BUN 28 H (7-18) mg/dl Creatinine 0.93 (0.6-1.4) mg/dl Est Cr Clr Drug Dosing 81.9 ml/min Est GFR ( Amer) 97.4 Est GFR (Non-Af Amer) 84.1 BUN/Creatinine Ratio 30.0 H (10-20) Glucose 137 H (70-99) mg/dl POC Glucose (70-99) Lactate (0.4-2.0) mmol/L Calcium 10.4 H (8.5-10.1) mg/dl Magnesium (1.8-2.4) mg/dl Total Bilirubin (0.2-1) mg/dl AST (15-37) U/L ALT (12-78) U/L Alkaline Phosphatase (45-117) U/L Total Protein (6.4-8.2) gm/dl Albumin (3.4-5.0) gm/dl Globulin (2.5-4.0) gm/dl Albumin/Globulin Ratio (0.9-2) Lipase (73-393) U/L Tumor Marker AFP Pending Procalcitonin 0.92 H (0-0.5) ng/ml 05/12/19 05/12/19 05/12/19 Range/Units 11:22 11:21 11:20 WBC (4.8-10.8) K/uL RBC (4.7-6.1) M/uL Hgb (14.0-18.0) g/dL Hct (42-52) % MCV (80-100) fL MCH (25-34) pg MCHC (32-36) g/dL RDW Std Deviation (36.4-46.3) fL RDW Coeff of Lesley (11.5-14.5) % Plt Count (130-400) K/uL MPV (7.4-10.4) fL Immature Gran % (Auto) % Neut % (Auto) % Lymph % (Auto) % [place] % (Auto) % Eos % (Auto) % Baso % (Auto) % Immature Gran # (Auto) (0.00-0.02) K/uL Neut # (Auto) (1.4-6.5) K/uL Lymph # (Auto) (1.2-3.4) K/uL [place] # (Auto) (0.11-0.59) K/uL Eos # (Auto) (0-0.5) K/uL Baso # (Auto) (0-0.2) K/uL PT (9.0-12.0) Seconds INR (0.9-1.1) Sodium (136-145) mmol/L Potassium (3.5-5.1) mmol/L Chloride (98-107) mmol/L Carbon Dioxide (21-32) mmol/L Anion Gap (3-11) BUN (7-18) mg/dl Creatinine (0.6-1.4) mg/dl Est Cr Clr Drug Dosing ml/min Est GFR ( Amer) Est GFR (Non-Af Amer) BUN/Creatinine Ratio (10-20) Glucose (70-99) mg/dl POC Glucose 164 H 170 H 344 H* (70-99) Lactate (0.4-2.0) mmol/L Calcium (8.5-10.1) mg/dl Magnesium (1.8-2.4) mg/dl Total Bilirubin (0.2-1) mg/dl AST (15-37) U/L ALT (12-78) U/L Alkaline Phosphatase (45-117) U/L Total Protein (6.4-8.2) gm/dl Albumin (3.4-5.0) gm/dl Globulin (2.5-4.0) gm/dl Albumin/Globulin Ratio (0.9-2) Lipase (73-393) U/L Tumor Marker AFP Procalcitonin (0-0.5) ng/ml Diagnostic Findings Multiphase CT liver HISTORY: Liver mass. COMPARISON: Ultrasound 05/11/2019 FINDINGS: Small right pleural effusion. Mild right basilar atelectasis. Calcified granuloma anterior aspect right lung base. Trace body wall anasarca. Small amount of scattered abdominal ascites. Probable hepatic cirrhotic change. Diffuse heterogeneity of the liver. Dominant mass posterior aspect right hepatic lobe measuring 14 x 12 cm. Upper abdominal adenopathy. Periportal nodes measure up to 3.5 cm. Para-aortic and retroperitoneal nodes are numerous and measures 2 4 cm. Peripancreatic nodes and mild mesenteric adenopathy is also present. Kidneys demonstrate several small cysts. No evidence for renal hydronephrosis. Nonobstructive bowel pattern. Mild atherosclerotic change abdominal aorta. Mild splenomegaly. IMPRESSION: 1. Findings of hepatic cirrhosis with mild scattered abdominal ascites. 2. Dominant mass posterior aspect right hepatic lobe measuring 14 x 12 cm. 3. Extensive upper abdominal and retroperitoneal adenopathy. 4. Small right pleural effusion with basilar atelectasis. 5. Mild body wall anasarca. 6. Mild splenomegaly. NUCLEAR HEPATOBILIARY SCAN IMPRESSION: 1. There is no scintigraphic evidence of acute cholecystitis. 2. There is markedly heterogeneous hepatic activity, likely related to hepatic masses seen on yesterday's ultrasound. PG Care Time/CCT Total # of Minutes Spent Total Time Spent with Patient: Total time spent is greater than 50% in coordination of care (as documented) at patient's floor/unit and/or counseling patient: (1) BPH (benign prostatic hyperplasia) Lower urinary tract symptom detail: weak urinary stream Lower urinary tract symptom presence: symptoms present Qualified Code(s): N40.1 - Benign prostatic hyperplasia with lower urinary tract symptoms; R39.12 - Poor urinary stream (2) Diabetes Diabetes mellitus complication status: without complication Diabetes mellitus mcfp insulin use: without mcfp use Diabetes mellitus type: type 2 Qualified Code(s): E11.9 - Type 2 diabetes mellitus without complications (3) CAD (coronary artery disease) Associated angina: without angina Coronary Disease-Associated Artery/Lesion type: [place] artery [place] vs. transplanted heart: [place]-chunk heart Qualified Code(s): I25.10 - Atherosclerotic heart disease of [place] coronary artery without angina pectoris
--- NOTE | 2019-05-13 14:47 | Magnetic Resonance Report ---
Study: MRCP. HISTORY: Hepatic mass Prior studies: CT liver same date FINDINGS: Nondiagnostic study due to considerable respiratory and somatic motion. The specific MRCP component o f the study is essentially nondiagnostic. Findings are suggestive of hepatic cirrhosis. Complex mass posterior aspect right hepatic lobe is aga in noted. The smaller lesions seen ultrasonically are less well-defined but are nevertheless present. . Mild upper abdominal ascites. There is mild splenomegaly. Bulky adenopathy of the abdomen retroperitoneum and para-aortic region are noted. There are findings of mild body wall anasarca. IMPRESSION: 1. Near nondiagnostic exam due to respiratory and somatic motion. 2. Hepatic cirrhosis with findings of mild body wall anasarca as well as a small amount of ascites. 3. Large complex mass posterior right hepatic lobe with several smaller hepatic lesions which were pr eviously described ultrasonically. 4. Nondiagnostic MRCP. 5. Bulky abdominal and retroperitoneal/periaortic adenopathy is again noted. 5. This study, as well as the prior CT study, suggests a neoplastic process. Electronically signed by: Santi Ron M.D. 05/13/2019 2:46 PM
[2019-05-13] MEDS ORDERED: DOCUSATE SODIUM 100 MG CAP PO ONE (16:33)
--- NOTE | 2019-05-13 16:42 | Gastrointestinal Consultation ---
Date of Consultation May 13, 2019 Assessment & Plan (1) RUQ abdominal pain: (2) Metastasis of unknown primary: (3) Liver mass: Recommend CT guided biopsy of liver mass for definitive diagnosis Patient has had a colonoscopy in the recent past per the patient's , however, I do not have these records Attempt to obtain records from prior colonoscopy Continue supportive care and pain control Advance to clear liquid diet now. History of Present Illness Reason for Consultation: Liver mass with elevated liver panel Attending Physician: Khai Ramirez History of Present Illness Chele Cai is a pleasant 68 yo CM who presented to the ER with severe Right sided abdominal pain. He recently had imaging performed at another facility, and was found to have a liver mass with extensive lymphadenopathy. He was subsequently sent to [facility] for direct admission, secondary to his imaging findings and Right sided pain. He did have a repeat CT scan of the liver here, as well as a MRI which showed findings of hepatic cirrhosis, a large complex mass in the posterior right hepatic lobe, bulky retroperitoneal and periaortic lymphadenopathy consistent with a neoplastic process. His liver panel remains elevated. At the time I saw the patient he was having continued Right sided abdominal pain, rated as 6/10 in intensity, radiating to his right thoracic spine region. He did state that the, "pain pills have helped a little." He states that he has not had any melena, hematochezia or hematemesis. His who is at his bedside states that he has never been told he has liver problems, however, she felt that his eyes looked slightly yellow approximately 1 year ago. He does not have any nausea or vomiting, and denies any further complaints. Allergies Allergy/AdvReac Type Severity Reaction Status Date / Time No Known Allergies Allergy Unverified 05/11/19 14:13 Home Medications Home Medications Medication Instructions Recorded Confirmed Type atorvastatin 80 mg PO DAILY 05/11/19 05/11/19 History empagliflozin [Jardiance] 25 mg PO DAILY 05/11/19 05/11/19 History linagliptin [Tradjenta] 5 mg PO DAILY 05/11/19 05/11/19 History losartan 50 mg PO DAILY 05/11/19 05/11/19 History metformin 1,000 mg PO BID 05/11/19 05/11/19 History metoprolol succinate 12.5 mg PO DAILY 05/11/19 05/11/19 History omeprazole 20 mg PO DAILY 05/11/19 05/11/19 History tamsulosin 0.4 mg PO DAILY 05/11/19 05/11/19 History ticagrelor [Brilinta] 90 mg PO BID 05/11/19 05/11/19 History Patient History Medical History Abdominal malignancy BPH (benign prostatic hyperplasia) CAD (coronary artery disease) Diabetes Surgical History History of heart artery stent May 2018 at [place] Family History Brother Cancer Sister Cancer Social History Preferred Language: Macedonian [employer] Required: No Beliefs That Will Affect Care: None Current Living Situation: Spouse Feels Safe at Home: Yes Safety Concerns: Feels Safe At This Time Smoking Status: Former smoker Tobacco Type: cigarettes ; Smoking End Date: 05/11/19 ; Hx Alcohol Use: No Hx Substance Use: No Review of Systems Review of Systems: All systems reviewed & are unremarkable except as noted in HPI & below Physical Exam Constitutional: + ill appearing and + morbidly obese Eyes: + scleral abnormality and EOM intact bilaterally icterus ENMT: external ear and nose normal, oropharynx normal Neck: trachea midline, no thyromegaly Respiratory: normal respiratory effort, lungs clear to auscultation Cardiovascular: RRR, no murmur, no edema Gastrointestinal (Abdomen): Inspection/Auscultation: normal bowel sounds Percussion/Palpation: + abdomen tender and abdomen soft; no hepatomegaly Skin: no rashes, warm and dry Psychiatric: A+Ox3, euthymic affect Results & Data Vital Signs (Past 12 Hours) Vital Signs Temp Pulse Pulse Resp BP Pulse Ox 05/13/19 16:05 36.4 C L 89 18 87/54 L 90 05/13/19 12:00 36.4 C L 82 20 112/60 92 05/13/19 09:00 80 05/13/19 07:30 37.2 C 84 18 113/72 94 PG Care Time/CCT Total # of Minutes Spent Total Time Spent with Patient: Total time spent is greater than 50% in coordination of care (as documented) at patient's floor/unit and/or counseling patient:
[2019-05-13] MEDS: ENOXAPARIN INJ 40 MG/0.4 ML SYR SQ SCH (20:07)
[2019-05-14] MEDS: OXYCODONE HCL IR 5 MG TAB (IMMEDIATE RELEASE) PO PRN ×3 (01:17→09:11)
[2019-05-14] MEDS: HYDROmorphone INJ 1 MG/ML SYRINGE IV PRN ×5 (03:19→19:39)
[2019-05-14] MEDS: AMPICILLIN/SULBACTAM SOD 3,000 MG in 0.9 % SODIUM CHLORIDE 100 ML IV SCH ×2 (03:20→10:15)
[2019-05-14] MEDS: SODIUM CHLORIDE 0.9% 1000ML 1,000 ML IV SCH ×5 (04:05→15:45)
[2019-05-14 06:40] LABS: Eosinophils # (auto) 0.02 K/uL (0-0.5); Eosinophils % (auto) 0.4 %; Hematocrit (blood only) 32.7 % (42-52); Hemoglobin 10.2 g/dL (14.0-18.0); Immature Granulocytes # (auto) 0.03 K/uL (0.00-0.02); Immature Granulocytes % (auto) 0.7 %; Lymphocytes # (auto) 0.35 K/uL (1.2-3.4); Lymphocytes % (auto) 7.7 %; Mean Corpuscular Hemoglobin 26.1 pg (25-34); Mean Corpuscular Hgb Conc 31.2 g/dL (32-36); Mean Corpuscular Volume 83.6 fL (80-100); Mean Platelet Volume 10.1 fL (7.4-10.4); Monocytes # (auto) 0.43 K/uL (0.11-0.59); Monocytes % (auto) 9.5 %; Neutrophils # (auto) 3.71 K/uL (1.4-6.5); Neutrophils % (auto) 81.7 %; Platelet Count 103 K/uL (130-400); RDW Coefficient of Variation 15.8 % (11.5-14.5); RDW Standard Deviation 47.9 fL (36.4-46.3); Red Blood Count 3.91 M/uL (4.7-6.1); White Blood Count 4.54 K/uL (4.8-10.8)
[2019-05-14 06:49] LABS: INR 1.4 (0.9-1.1)
[2019-05-14 07:11] LABS: Albumin Level 1.8 gm/dl (3.4-5.0); BUN Creatinine Ratio 27.2 (10-20); Est GFR (African American) 106.4; Est GFR (Non-African American) 91.8; Potassium 3.8 mmol/L (3.5-5.1)
[2019-05-14 07:14] LABS: Albumin Globulin Ratio 0.5 (0.9-2); Bilirubin,Total 1.7 mg/dl (0.2-1); Globulin 3.9 gm/dl (2.5-4.0); Phosphorus 2.1 mg/dl (2.5-4.9); Total Protein 5.7 gm/dl (6.4-8.2)
[2019-05-14] MEDS: INSULIN ASPART 100 UNITS/ML 3 ML PEN SC SCH ×3 (08:35→17:00)
[2019-05-14] MEDS: metroNIDAZOLE 500 MG/100 ML BAG IV SCH (08:46)
[2019-05-14] MEDS: CALCITONIN SALMON NA 200 IU/AC 3.7 ML BTL SCH (09:00)
[2019-05-14] MEDS: POLYETHYLENE (MIRALAX) 17 GM PACK PO SCH (09:07)
[2019-05-14] MEDS: PANTOprazole 40 MG TAB PO SCH (09:07)
[2019-05-14] MEDS: TAMSULOSIN HCL 0.4 MG CAP PO SCH (09:07)
[2019-05-14] MEDS: ATORVASTATIN 40 MG TAB PO SCH (09:07)
[2019-05-14] MEDS: POT PHOSPHATE MONOBASIC W/ SOD TAB PO SCH ×4 (09:08→19:36)
--- NOTE | 2019-05-14 09:30 | Surgery Progress Note ---
Date of Service F/U cholelithiasis, pt denies abdominal pain, no nausea, no vomiting, HIDA scan- negative for acute cholecystitis, May 14, 2019 Assessment & Plan (1) Abdominal malignancy: 68 year-old male with recent diagnosis of abdominal malignancy/metastasis with unknown primary who was directly admitted for uncontrolled abdominal pain. Recent 40 pound weight loss in 1-2 months. Outside abdominal MRI not available for review. Plan: Our services consulted for possible port placement for salvage chemotherapy. Will need to discuss with hospitalist team and oncology team about goal of therapy. If wanting biopsy first to determine primary site vs port placement. He currently has diet ordered for today and had breakfast, so cannot place port today. If oncology wants port first can place port on Wednesday and hold Brilinta starting today. If biopsy is primary goal may need to consider transfer for IR biopsy if unable to be done at this facility. Continue current medical management (2) RUQ abdominal pain: Likely secondary to liver metastasis. Liver Ultrasound pending Would continue current pain management await US results (3) Metastasis of unknown primary: plan as above Dr. Streeter has seen patient, agrees with above. 05/14/2019 9:27AM base large liver mass, I recommend to transfer pt to [facility] for liver biopsy consult hepatic and Oncology surgeon. D/W pt and pt's about benefits, risks and alternatives of transfer, they understood, they agree with transfer, D/W hospitalist. Supervising Physician Co-Signing Physician Notes Attending Attestation & Progress Note: Pt seen/examined, chart reviewed, care plan extensively discussed with CARLOS Novak. I agree w/ the can components of her documentation. 68yo male with CAD and T2DM admitted for w/u of large liver lesions concerning for metastatic cancer. Overnight had low-grade fever to 37.7. RUQ u/s showed the liver lesions but also numerous gallstones and signs of gall bladder inflammation. He has had severe right sided abdominal pain much of which is in the RUQ. This am the patient developed hypotension necessitating fluid bolus. No significant response to such, and additional fluid boluses were given. He was transferred to telemetry, blood cx's were drawn, and he was started on IV abx in the event he had acute cholecysititis. Hypercalcemia has been treated as well with IVF and some lasix. I saw the patient at bedside this evening with CARLOS Novak. He stated the pain meds have been helping. reports fevers/chills/sweats for 1-2 weeks at home along with deterioration overall in the last 2-3 days. exam: gen - sickly, dehydrated mouth - MM very dry neck - no JVD heart - RRR, s1 s1, no murmur lungs - decreased BS right base, CTA otherwise abd - distended, very tender RUQ, BS+ ext - no edema, pulses 2+ b/l labs reviewed imaging reviewed A/P: 1. hypotension - concern for developing sepsis. 2. gallstones, gall bladder thickening/fluid - concerning for acute cholecystitis despite the negative HIDA scan. 3. large liver masses concerning for metastatic cancer. 4. hypercalcemia likely due to malignancy. 5. CAD. 6. BPH, HTN. 7. right-sided abd pain - either due to liver mets, cholecystitis, or combination of both issues. Downgrade diet to clears; any worsening in abd pain then strict NPO. Copious IV fluids. IV abx. Give glucagon to reverse beta cameron. Hold ARB. Keep MAP >65. Agree w/ Rx of hypercalcemia as Ms Novak is doing; hold on lasix in light of #1. Gen surgery following for #2. If any worsening or refractory hypotension then ICU transfer. updated at bedside. critical care time - 70 minutes Khai Ramirez MD Physical Exam Constitutional: WD/WN, vitals as above well developed and well nourished Neck: trachea midline, no thyromegaly Respiratory: normal respiratory effort, lungs clear to auscultation Cardiovascular: RRR, no murmur, no edema Gastrointestinal (Abdomen): Percussion/Palpation: abdomen soft NT, ND Musculoskeletal: no cyanosis or clubbing, extremities motor strength 5/5 Neurologic: awake Psychiatric: Orientation: alert and oriented x 3 Results & Data Vital Signs (Past 12 Hours) Vital Signs Temp Pulse Pulse Resp BP Pulse Ox 05/14/19 07:25 36.5 C 90 18 115/71 95 05/14/19 03:35 36.7 C 81 17 98/61 L 93 05/14/19 00:17 81 05/13/19 23:48 37.1 C 84 18 95/59 L 93 Laboratory Results Abnormal lab results 0105/14/19 05/14/19 Range/Units 12:52 06:23 06:23 WBC 4.54 L (4.8-10.8) K/uL RBC 3.91 L (4.7-6.1) M/uL Hgb 10.2 L (14.0-18.0) g/dL Hct 32.7 L (42-52) % MCHC 31.2 L (32-36) g/dL RDW Std Deviation 47.9 H (36.4-46.3) fL RDW Coeff of Lesley 15.8 H (11.5-14.5) % Plt Count 103 L (130-400) K/uL Immature Gran # (Auto) 0.03 H (0.00-0.02) K/uL Lymph # (Auto) 0.35 L (1.2-3.4) K/uL PT 14.0 H (9.0-12.0) Seconds INR 1.4 H (0.9-1.1) Chloride (98-107) mmol/L Carbon Dioxide (21-32) mmol/L BUN (7-18) mg/dl BUN/Creatinine Ratio (10-20) POC Glucose 118 H (70-99) Phosphorus (2.5-4.9) mg/dl Total Bilirubin (0.2-1) mg/dl AST (15-37) U/L Alkaline Phosphatase (45-117) U/L Total Protein (6.4-8.2) gm/dl Albumin (3.4-5.0) gm/dl Albumin/Globulin Ratio (0.9-2) Procalcitonin (0-0.5) ng/ml 05/14/19 05/14/19 Range/Units 06:23 06:23 WBC (4.8-10.8) K/uL RBC (4.7-6.1) M/uL Hgb (14.0-18.0) g/dL Hct (42-52) % MCHC (32-36) g/dL RDW Std Deviation (36.4-46.3) fL RDW Coeff of Lesley (11.5-14.5) % Plt Count (130-400) K/uL Immature Gran # (Auto) (0.00-0.02) K/uL Lymph # (Auto) (1.2-3.4) K/uL PT (9.0-12.0) Seconds INR (0.9-1.1) Chloride 110 H (98-107) mmol/L Carbon Dioxide 20 L (21-32) mmol/L BUN 22 H (7-18) mg/dl BUN/Creatinine Ratio 27.2 H (10-20) POC Glucose (70-99) Phosphorus 2.1 L (2.5-4.9) mg/dl Total Bilirubin 1.7 H (0.2-1) mg/dl AST 147 H (15-37) U/L Alkaline Phosphatase 272 H (45-117) U/L Total Protein 5.7 L (6.4-8.2) gm/dl Albumin 1.8 L (3.4-5.0) gm/dl Albumin/Globulin Ratio 0.5 L (0.9-2) Procalcitonin 2.35 H (0-0.5) ng/ml
[2019-05-14] MEDS ORDERED: SPIRONOLACTONE 25 MG TAB PO ONE ×2 (09:32→16:30)
--- NOTE | 2019-05-14 15:42 | Discharge Summary ---
Date of Service May 14, 2019 Admission HPI Per Admitting Provider Chele Cai is an unfortunate 68-year-old male presenting with suspected metastatic malignancy, unknown primary at this time. Patient reports severe right-sided flank pain over the last few weeks. He saw his PCP with this complaint approximately 2 weeks ago. An MRI was obtained which reportedly showed diffuse lesions in the liver, spleen and abdomen suspicious for metastatic disease. He was seen last weekend at an outside emergency room and was administered IV fluids and pain medications and subsequently discharged home. She reports weight loss of approximately 40 pounds over the last 1 to 2 months. Reports decreased appetite, poor p.o. intake and hot flashes. Also with constipation. Otherwise denies fever/chills/chest pain/palpitations/cough/shortness of breath/headache/seizure/numbness/wea kness/tingling. Denies nausea/vomiting/diarrhea. Admission Exam Per Admitting Provider General: patient resting comfortably, NAD, ill in appearance, AA&O x 4 Skin: warm, dry, intact, no rashes or lesions, jaundice HEENT: NC/AT, PERRL, EOMI, anicteric sclera, conjunctiva without injection, external ear normal to inspection and nontender, nares patent, dry mucus membranes, dentition intact, no oropharyngeal lesions, neck supple, trachea midline, no LAD, no thyromegaly, no JVD Heart: +S1/S2, regular, no m/r/g Lungs: equal air entry bilaterally, no rales/rhonchi/wheezes Abd: +BS, soft, tenderness in the right upper quadrant, palpable liver edge, tender Ext: warm, 2+ pulses in UE/LE bilaterally, no clubbing/cyanosis or edema Neuro: nonfocal, patient AA&O x 4, speech intact, no facial droop, moving all extremities on command with equal strength 5/5 Principal Diagnosis Liver Mass with likely Metastasis, Hypotension with concern for developing sepsis Discharge Exam Constitutional + cachectic, cooperative and + malnourished Eyes + scleral abnormality (Icteric sclerae bilaterally) and PERRL Neck trachea midline, no thyromegaly Respiratory normal respiratory effort; no respiratory distress and no labored breathing Auscultation: + diminished lung sounds (bases bilaterally) Cardiovascular Rate/Rhythm: regular rate and regular rhythm Heart Sounds: no murmur Extremities: + edema (2+ pitting edema b/l le) Gastrointestinal (Abdomen) Inspection/Auscultation: + abdomen distended and + abdominal edema Percussion/Palpation: + abdomen tender (RUQ, R flank, epigastric region), + hepatosplenomegaly and + ascites Musculoskeletal no cyanosis or clubbing, extremities motor strength 5/5 Neurologic patellar DTR's 2+ bilat, sensation intact Psychiatric Orientation: alert and oriented x 3 Lymphatic + lymphadenopathy Discharge Data Allergies Allergy/AdvReac Type Severity Reaction Status Date / Time No Known Allergies Allergy Unverified 05/11/19 14:13 Consultations 05/11/19 13:33 Consult Hematology Routine 05/11/19 18:28 Consult General Surgery Routine 05/12/19 10:35 Consult Health Information Management Routine 05/12/19 15:52 Consult Health Information Management Routine 05/13/19 11:14 Consult Gastroenterology Routine 05/14/19 10:05 Burn CD for patient Routine Ordered Studies 05/11/19 CXR 05/11/19 22:59 US liver Urgent 05/13/19 08:12 CT liver wo/w con Routine 05/13/19 11:22 MR MRCP Urgent Hospital Course (1) Liver mass: * Patient with recently identified abdominal mass highly suspicious for malignancy-- abd wall, liver, spleen, with hypercalcemia. -- will consult HIM for [facility] records. * Dedicated CT Liver as above -- mass 12x14 cm R hepatic lobe with with enlarged periaortic and retroperitoneal lymphadenopathy * CA 19-9, AFP pending * Hematology/Oncology consultation * Patient with borderline hypotension and fever 37.7C on 05/11/19, Procalcitonin elevated at 0.92 with elevation to 2.62 on 05/13. Currently 2.35 Lactic 1.9. No further WBC elevation or fever * Initiated Unasyn/Metronidazole for empiric coverage * Blood cultures NGTD * General surgery consult for port placement -- given other more emergent concerns, will hold off on port placement for now -- will likely need placed in future for chemo pending biopsy results * Biopsy unable to be performed initially as patient was on Brillinta (last dose 05/12) -- no procedures on the weekend -- earlier to occur on Wednesday. As patient condition worsened over weekend, unable to be performed at this facility due to concerns with complications and inability to achieve hemostasis/IR at this facility * Initially additionally concerned for acute cholecystis given wall thickening, numerous stones, elevated tbili, RUQ pain, but HIDA scan negative. Tbili trending down, but still elevated at 1.7 * Dedicated Liver CT --> dominant mass posterior aspect right hepatic lobe measuring [id number], extensive upper abd/retroperitonelal adenopathy, mild body wall anasarca -- mass may explain elevated bilirubin, but given initially elevated WBC, temp 37.7C on 05/11, anorexia and RUQ, concern for ascending cholangitis * Discussed with GI [facility] [place] [facility] consultant, Dr. Ly --consult placed --> does not perform ERCP, but rec MRCP which was without evidence for obstruction * Continued Unasyn/metronidazole * Continued IVF @ 175ml/hr until 05/14. Given spironolactone for increased edema/ascites-- will need to closely monitor BP * --> given increased third spacing this evening, (05/14) IVFs discontinued. BP stable at 109/68 currently. * Conversation with general surgery with recommendation to transfer to tertiary care even for biopsy now, given INR 1.4 and increasing size of mass as well as lack of IR in event unable to stop bleeding - * Spoke with Dr. Rodriges today from [facility] for transfer -- patient accepted -- to be transferred when bed clean and transportation available * Possible need for Palliative Care consultation after diagnosis (2) Abdominal malignancy: * As above -- [id number] complex R hepatic lobe mass with enlarged periaortic and retroperitoneal lymphadenopathy * AFP, CA 19-9 pending (3) Diabetes: * Patient reports adequate control with home medications, Metformin, Jardiance and Tradjenta. * Hold oral agents while inpatient, use ISS. A1c 7.3%. Given glucagon 1mg x1 on 05/12 counteract effects of metoprolol, given low BP despite IVFs. Blood sugars acceptable (4) CAD (coronary artery disease): * Patient reports history of CAD s/p stent placement x 2 in [place] in May 2018. Last dose Brillinta 05/12/19. Denies CP/Palpitaitons/Orthopnea/SOB/Dizziness. * EKG with left axis deviation, nonspecific ST and T wave abnormality * Requested records as above -- patient has been on Brilinta for one year -- to be on hold for port/liver biopsy * Will hold atorvastatin for now * Metoprolol 12.5mg, losartan 50mg on hold in setting of hypotension -- continued to hold (5) BPH (benign prostatic hyperplasia): * Patient reported weak urinary stream. Bladder scan as needed * Continued Flomax 0.4mg po daily (6) Acid reflux: * Stable * Continued omeprazole (7) Severe protein-calorie malnutrition: * Secondary to liver mass, likely metastasis as well as possible underlying infectious process given elevated procal * [employer] on consult (8) Hypotension: * Given 1L NSS bolus x 2, 500cc x 1 on 05/11 and 05/12 * Currently stable BP, 109/68 * Hold BB and BRIAN as above * Continue to monitor (9) Gallstones: * On US imaging -- HIDA negative for acute GB * Given fever, elevated procalcitonin -- will continue abx * MRCP without evidence for obstruction (10) Hypercalcemia: * Improving, stable * Patient also with elevated Calcium, 11.5 on admission with albumin 2.5 --> corrected calcium 12.7 * NSS at 125mL/hr x 2 liters on admission for hypotension-- given pamidronate 60mg and IVF, with 20mg IV Lasix on 05/11 for hypercalcemia. * On calcitonin nasal spray currently, IVF @ 175mL/hr -- holding off on diuretics in the setting of hypotension * Calcium 9.0 today, corrected at 10.8 today -- will hold off on further IVF/calcitonin intranasally for now * Continue to monitor (11) Hypophosphatemia: * Phos low at 2.1 today -- will begin oral replacement (12) DVT prophylaxis: * Lovenox SQ Dispo: accepted to [facility]. Transport when bed available. Total Time Total Time Spent Total Time Spent (In Minutes): 120 Discharge Plan Discharge Items Patient Disposition: Transfer Acute Care Hospital Reason For Visit: CANCER UNKNOWN ORIGIN Discharge Diagnosis: Liver Mass with third spacing, Hypotension Goals: You have been hospitalized for an acute medical problem. During your stay at [facility], we have made an effort to correct the problem that brought you to the hospital while keeping you as comfortable as possible. Medications were used to bring your condition under control and your discharge instructions will include directions for any medications you should take after leaving the hospital. Please make sure you see your Primary Care Provider as part of your follow up plan once you are discharged from [facility]. Activity: As commented below Non-emergency contact: Primary Care Provider Call non-emergency contact if: you have any medication questions Follow-up/Referrals: Wlimer Aguilera DO [Primary Care Provider] - Diet: Carb Count or DM1, Clear liquid and Heart Healthy Addtl Attending Provider Instructions: You are being transferred to [facility] for further management/biopsy. Pending Studies at Discharge: Yes Studies:: AFP, CA19-9, Blood Cultures Stand-Alone Forms: My [facility] Skilled Items Patient informed of condition?: Yes DNR: No Discharge Level of Care: Other Communicable Disease: No Discharge Prognosis: Deteriorating Lines: Peripheral IV Urinary Catheter: No Medications and DC Order Prescriptions: New pantoprazole 40 mg Tablet,Delayed Release (Dr/Ec) 40 mg PO DAILY Qty: 30 RF: 0 enoxaparin 40 mg/0.4 mL Syringe 40 mg subcut Q24H 3 Days Qty: 1.2 RF: 0 Continued tamsulosin 0.4 mg capsule 0.4 mg PO DAILY RF: 0 metformin 1,000 mg tablet 1,000 mg PO BID RF: 0 Tradjenta 5 mg tablet 5 mg PO DAILY RF: 0 Jardiance 25 mg tablet 25 mg PO DAILY RF: 0 Discontinued losartan 50 mg tablet 50 mg PO DAILY RF: 0 atorvastatin 80 mg tablet 80 mg PO DAILY RF: 0 omeprazole 20 mg capsule,delayed release(DR/EC) 20 mg PO DAILY RF: 0 metoprolol succinate 25 mg tablet extended release 24 hr 12.5 mg PO DAILY RF: 0 Brilinta 90 mg tablet 90 mg PO BID RF: 0 Discharge Orders: Discharge Order (Routine); Ordered 05/14/19 Ordered By: Sivan Novak Admission Data Admit Date/Time: 05/11/19 12:52 Attending Provider: Khai Ramirez Admit Provider: Maribel Morales Primary Care Provider: Wilmer Aguilera Other Providers: Chauncey Jordan V ; Alyssa Hernandez ; Angel Ly
[2019-05-14] MEDS ORDERED: MAGNESIUM HYDROXIDE SUSP 30 ML UDC PO PRN (15:44)
--- NOTE | 2019-05-14 15:59 | Hospitalist Progress Note ---
Date of Service May 14, 2019 Assessment & Plan (1) Abdominal malignancy: * Patient with recently identified abdominal mass highly suspicious for malignancy-- abd wall, liver, spleen, with hypercalcemia. * Dedicated CT Liver on 05/13/19 -- mass 12x14 cm R hepatic lobe with with enlarged periaortic and retroperitoneal lymphadenopathy * CA 19-9 pending * Alpha protein level-- pending * Hematology/Oncology consultation * Patient with borderline hypotension and fever 37.7C on 05/11/19, Procalcitonin elevated at 0.92, Lactic 1.9 * Blood cultures NGTD * Initiated Unasyn/Metronidazole for empiric coverage * General surgery consult -- given other more emergent concerns, will hold off on port placement for now -- will likely need placed in future for chemo pending biopsy results * Initially additionally concerned for acute cholecystis given wall thickening, numerous stones, elevated tbili, RUQ pain, but HIDA scan negative. Tbili trending down, but still elevated at 1.7 * Called radiology for possible biopsy -- unable to perform given patient on (spoke with Dr. Way) -- no procedures this weekend --> per Dr. Ron conversation last evening, would be able to be done Wednesday at the earliest. * Dedicated Liver CT --> dominant mass posterior aspect right hepatic lobe measuring [id number], extenside upper abd/retroperitonelal adenopathy, mild body wall anasarca -- mass may explain elevated bilirubin, but given initially elevated WBC, temp 37.7C on 05/11, anorexia and RUQ, concern for ascending cholangitis * MRCP without evidence of obstruction * Spoke with [facility] on 05/13 for possible transfer, Dr. Camara (internal medicine) and Dr. Pugh (surgery). No transfer at this time. Recommended ERCP with possible stent placement. * Discussed with GI crayon molding machine operator, Dr. Ly --consult placed --> does not perform ERCP, but rec MRCP -- ordered --> negative for obstruction as above * Procalcitonin peaked at 2.62, down to 2.35 today. Lactic acid 1.8. No further fevers or elevated WBC. * Continue Unasyn/metronidazole * Ammonia level 20 * Continue IVF @ 175ml/hr. Will give spironolactone PO for increased edema/ascites-- will need to closely monitor BP * Phos low at 2.1 today -- will begin oral replacement -- continue to monitor * Palliative Care consultation after diagnosis * Conversation with general surgery with recommendation to transfer to tertiary care even for biopsy now, given INR 1.4 and increasing size of mass as well as lack of IR in event unable to stop bleeding - * Spoke with Dr. Rodriges today from [facility] for transfer -- patient accepted -- awaiting bed placement (2) Diabetes: * Patient reports adequate control with home medications, Metformin, Jardiance and Tradjenta. * Hold oral agents while inpatient * ISS while inpatient * A1c 7.3% * Given glucagon 1mg x1 on 05/12 counteract effects of metoprolol, given low BP despite IVFs * blood sugars acceptable (3) CAD (coronary artery disease): * Patient reports history of CAD s/p stent placement x 2 in [place] in May 2018. He is presently taking Brillinta. Denies CP/Palpitaitons/Orthopnea/SOB/Dizziness. * EKG with left axis deviation, nonspecific ST and T wave abnormality * Tx to telemetry as above on 04/11 * Requested records as above -- patient has been on Brilinta for one year -- to be on hold for port/liver biopsy * Will hold atorvastatin for now * Metoprolol 12.5mg, losartan 50mg on hold in setting of hypotension -- continue to hold (4) BPH (benign prostatic hyperplasia): * Patient reports weak urinary stream. Bladder scan as needed * Continue Flomax 0.4mg po daily (5) Acid reflux: * Stable * Continue omeprazole (6) Severe protein-calorie malnutrition: * Secondary to liver mass, likely metastasis as well as possible underlying infectious process given elevated procal * Dress Shoe Inspector on consult (7) Hypotension: * Given 1L NSS bolus x 2, 500cc x 1 on 05/11 and 05/12 * Currently stable BP, 109/68 * Hold BB and BRIAN as above * Continue to monitor (8) Gallstones: * On US imaging -- HIDA negative for acute GB * Given fever, elevated procalcitonin -- will continue abx * MRCP without evidence for obstruction (9) Hypercalcemia: * Improving, stable * Patient also with elevated Calcium, 11.5 on admission with albumin 2.5 --> corrected calcium 12.7 * NSS at 125mL/hr x 2 liters on admission for hypotension-- given pamidronate 60mg and IVF, with 20mg IV Lasix on 1 for hypercalcemia. * On calcitonin nasal spray currently, IVF @ 175mL/hr -- holding off on diuretics in the setting of hypotension * Calcium 9.0 today, corrected at 10.8 today -- will hold off on further calcitonin intranasally for now * Continue to monitor (10) DVT prophylaxis: * Lovenox SQ Dispo: accepted to [facility] [address]. Transport when bed available. Subjective Patient continuing to have significant abdominal pain, requiring both PO and IV pain medications without much improvement. Increased abdominal fullness. Continues to be without BM. Discussed risks of bleeding if patient remains here for biopsy in AM. Will attempt to reach out to [facility] for biopsy and back up IR/surgical intervention if necessary. Patient and agreeable with plan. Questions/concerns addressed. Of note, discussed goals of care with separately, as she states patient not fully grasping his current situation as he is worried about his brother and his medical issues. She states they do want to find a diagnosis and then based on that, they will determine if he wants to go through rigorous testing or if they would move in a palliative direction. Review of Systems Review of Systems: All systems reviewed & are unremarkable except as noted in HPI & below Constitutional: + fatigue, + malaise, + weakness and + anorexia Respiratory: no cough and no dyspnea Cardiovascular: no chest pain and no palpitations Gastrointestinal: + abdominal pain and + constipation Genitourinary: no dysuria and no hematuria Integumentary: no rash and no lesions Physical Exam Constitutional: WD/WN, vitals as above + cachectic, cooperative and + malnourished Eyes: + scleral abnormality (Icteric sclerae bilaterally) and PERRL Neck: trachea midline, no thyromegaly Respiratory: normal respiratory effort; no respiratory distress and no labored breathing Auscultation: + diminished lung sounds (bases bilaterally) Cardiovascular: Rate/Rhythm: regular rate and regular rhythm Heart Sounds: no murmur Extremities: + edema (2+ pitting b/l) Gastrointestinal (Abdomen): Inspection/Auscultation: + abdomen distended and + abdominal edema Percussion/Palpation: + abdomen tender (RUQ, R flank, epigastric region), + hepatosplenomegaly and + ascites Musculoskeletal: no cyanosis or clubbing, extremities motor strength 5/5 Neurologic: patellar DTR's 2+ bilat, sensation intact Psychiatric: Orientation: alert and oriented x 3 Lymphatic: no cervical or axillary lymphadenopathy Results & Data Vital Signs (Past 12 Hours) Vital Signs Temp Pulse Pulse Resp BP Pulse Ox 05/14/19 11:03 36.5 C 89 20 108/70 94 05/14/19 08:00 83 05/14/19 07:25 36.5 C 90 18 115/71 95 Laboratory Results 05/14/19 05/14/19 05/14/19 Range/Units 11:09 07:32 06:23 WBC (4.8-10.8) K/uL RBC (4.7-6.1) M/uL Hgb (14.0-18.0) g/dL Hct (42-52) % MCV (80-100) fL MCH (25-34) pg MCHC (32-36) g/dL RDW Std Deviation (36.4-46.3) fL RDW Coeff of Lesley (11.5-14.5) % Plt Count (130-400) K/uL MPV (7.4-10.4) fL Immature Gran % (Auto) % Neut % (Auto) % Lymph % (Auto) % [place] % (Auto) % Eos % (Auto) % Baso % (Auto) % Immature Gran # (Auto) (0.00-0.02) K/uL Neut # (Auto) (1.4-6.5) K/uL Lymph # (Auto) (1.2-3.4) K/uL [place] # (Auto) (0.11-0.59) K/uL Eos # (Auto) (0-0.5) K/uL Baso # (Auto) (0-0.2) K/uL PT (9.0-12.0) Seconds INR (0.9-1.1) Sodium (136-145) mmol/L Potassium (3.5-5.1) mmol/L Chloride (98-107) mmol/L Carbon Dioxide (21-32) mmol/L Anion Gap (3-11) BUN (7-18) mg/dl Creatinine (0.6-1.4) mg/dl Est Cr Clr Drug Dosing ml/min Est GFR ( Amer) Est GFR (Non-Af Amer) BUN/Creatinine Ratio (10-20) Glucose (70-99) mg/dl POC Glucose 113 H 74 (70-99) Calcium (8.5-10.1) mg/dl Phosphorus (2.5-4.9) mg/dl Magnesium (1.8-2.4) mg/dl Total Bilirubin (0.2-1) mg/dl AST (15-37) U/L ALT (12-78) U/L Alkaline Phosphatase (45-117) U/L Total Protein (6.4-8.2) gm/dl Albumin (3.4-5.0) gm/dl Globulin (2.5-4.0) gm/dl Albumin/Globulin Ratio (0.9-2) Procalcitonin 2.35 H (0-0.5) ng/ml 05/14/19 05/14/19 05/14/19 Range/Units 06:23 06:23 06:23 WBC 4.54 L (4.8-10.8) K/uL RBC 3.91 L (4.7-6.1) M/uL Hgb 10.2 L (14.0-18.0) g/dL Hct 32.7 L (42-52) % MCV 83.6 (80-100) fL MCH 26.1 (25-34) pg MCHC 31.2 L (32-36) g/dL RDW Std Deviation 47.9 H (36.4-46.3) fL RDW Coeff of Lesley 15.8 H (11.5-14.5) % Plt Count 103 L (130-400) K/uL MPV 10.1 (7.4-10.4) fL Immature Gran % (Auto) 0.7 % Neut % (Auto) 81.7 % Lymph % (Auto) 7.7 % [place] % (Auto) 9.5 % Eos % (Auto) 0.4 % Baso % (Auto) 0.0 % Immature Gran # (Auto) 0.03 H (0.00-0.02) K/uL Neut # (Auto) 3.71 (1.4-6.5) K/uL Lymph # (Auto) 0.35 L (1.2-3.4) K/uL Sargent # (Auto) 0.43 (0.11-0.59) K/uL Eos # (Auto) 0.02 (0-0.5) K/uL Baso # (Auto) 0.00 (0-0.2) K/uL PT 14.0 H (9.0-12.0) Seconds INR 1.4 H (0.9-1.1) Sodium 139 (136-145) mmol/L Potassium 3.8 (3.5-5.1) mmol/L Chloride 110 H (98-107) mmol/L Carbon Dioxide 20 L (21-32) mmol/L Anion Gap 9.0 (3-11) BUN 22 H (7-18) mg/dl Creatinine 0.80 (0.6-1.4) mg/dl Est Cr Clr Drug Dosing 100.0 ml/min Est GFR ( Amer) 106.4 Est GFR (Non-Af Amer) 91.8 BUN/Creatinine Ratio 27.2 H (10-20) Glucose 70 (70-99) mg/dl POC Glucose (70-99) Calcium 9.0 (8.5-10.1) mg/dl Phosphorus 2.1 L (2.5-4.9) mg/dl Magnesium 2.0 (1.8-2.4) mg/dl Total Bilirubin 1.7 H (0.2-1) mg/dl AST 147 H (15-37) U/L ALT 36 (12-78) U/L Alkaline Phosphatase 272 H (45-117) U/L Total Protein 5.7 L (6.4-8.2) gm/dl Albumin 1.8 L (3.4-5.0) gm/dl Globulin 3.9 (2.5-4.0) gm/dl Albumin/Globulin Ratio 0.5 L (0.9-2) Procalcitonin (0-0.5) ng/ml 05/13/19 05/13/19 Range/Units 20:01 16:19 WBC (4.8-10.8) K/uL RBC (4.7-6.1) M/uL Hgb (14.0-18.0) g/dL Hct (42-52) % MCV (80-100) fL MCH (25-34) pg MCHC (32-36) g/dL RDW Std Deviation (36.4-46.3) fL RDW Coeff of Lesley (11.5-14.5) % Plt Count (130-400) K/uL MPV (7.4-10.4) fL Immature Gran % (Auto) % Neut % (Auto) % Lymph % (Auto) % [place] % (Auto) % Eos % (Auto) % Baso % (Auto) % Immature Gran # (Auto) (0.00-0.02) K/uL Neut # (Auto) (1.4-6.5) K/uL Lymph # (Auto) (1.2-3.4) K/uL [place]ent # (Auto) (0.11-0.59) K/uL Eos # (Auto) (0-0.5) K/uL Baso # (Auto) (0-0.2) K/uL PT (9.0-12.0) Seconds INR (0.9-1.1) Sodium (136-145) mmol/L Potassium (3.5-5.1) mmol/L Chloride (98-107) mmol/L Carbon Dioxide (21-32) mmol/L Anion Gap (3-11) BUN (7-18) mg/dl Creatinine (0.6-1.4) mg/dl Est Cr Clr Drug Dosing ml/min Est GFR ( Amer) Est GFR (Non-Af Amer) BUN/Creatinine Ratio (10-20) Glucose (70-99) mg/dl POC Glucose 89 98 (70-99) Calcium (8.5-10.1) mg/dl Phosphorus (2.5-4.9) mg/dl Magnesium (1.8-2.4) mg/dl Total Bilirubin (0.2-1) mg/dl AST (15-37) U/L ALT (12-78) U/L Alkaline Phosphatase (45-117) U/L Total Protein (6.4-8.2) gm/dl Albumin (3.4-5.0) gm/dl Globulin (2.5-4.0) gm/dl Albumin/Globulin Ratio (0.9-2) Procalcitonin (0-0.5) ng/ml PG Care Time/CCT Total # of Minutes Spent Total Time Spent with Patient: Total time spent is greater than 50% in coordination of care (as documented) at patient's floor/unit and/or counseling patient: (1) BPH (benign prostatic hyperplasia) Lower urinary tract symptom detail: weak urinary stream Lower urinary tract symptom presence: symptoms present Qualified Code(s): N40.1 - Benign prostatic hyperplasia with lower urinary tract symptoms; R39.12 - Poor urinary stream (2) Diabetes Diabetes mellitus complication status: without complication Diabetes mellitus terminal system operator insulin use: without correction use Diabetes mellitus type: type 2 Qualified Code(s): E11.9 - Type 2 diabetes mellitus without complications (3) CAD (coronary artery disease) Associated angina: without angina Coronary Disease-Associated Artery/Lesion type: [place] artery [place] vs. transplanted heart: [place] heart Qualified Code(s): I25.10 - Atherosclerotic heart disease of [place] coronary artery wit hout angina pectoris
== END 2019-05-14 20:34 | disposition short-term general hospital (02) | DRG 435 ==
LOC: 4W 12:52 → SUATTDRO 12:52 → 2S 05-12 15:07